=== PATIENT | female | born 1960 | race Caucasian/White ===

== ENCOUNTER → 2025-03-14 13:28 | Outpatient (REF) | payer OTHER, SELFPAY | LOC: RCS 13:28 | PROVIDERS: ATTENDING PHYSICIAN Internal Medicine Cardiovascular Disease; FAMILY PHYSICIAN Family Medicine | DX: I27.20 Pulmonary hypertension, unspecified (principal) | CPT/HCPCS: 93017; 93350 ==

== ENCOUNTER 2025-03-21 06:47 | Day surgery (SDC) | payer OTHER, SELFPAY | END 2025-03-21 09:45 | disposition home or self-care (01) | LOC: CATH 06:47 | PROVIDERS: ATTENDING PHYSICIAN Internal Medicine Cardiovascular Disease; FAMILY PHYSICIAN Family Medicine; OTHER PHYSICIAN Internal Medicine Cardiovascular Disease | DX: I08.1 Rheumatic disorders of both mitral and tricuspid valves (principal); I08.8 Other rheumatic multiple valve diseases; I70.0 Atherosclerosis of aorta; I27.20 Pulmonary hypertension, unspecified; E03.9 Hypothyroidism, unspecified; R73.02 Impaired glucose tolerance (oral); Z79.890 Hormone replacement therapy; Z79.01 Long term (current) use of anticoagulants; Z79.899 Other long term (current) drug therapy | CPT/HCPCS: 93312; 93320; 93325 ==

== ENCOUNTER 2025-04-07 08:19 | Day surgery (SDC) | payer OTHER, SELFPAY ==
[2025-04-07] VITALS (9 sets, daily range): BP systolic 113–144; BP diastolic 60–78; BMI 21.1
[2025-04-07] MEDS: LOW STRENGTH ASPIRIN 324 MG PO (09:33)
[2025-04-07 09:36] LABS: Hematocrit 44.2 % (37.0-47.0); Mean Corp Hgb Conc. 31.7 g/dL (33.0-37.0); Mean Corpuscular Hgb 27.1 pg (27.0-31.0); Mean Corpuscular Volume 85.7 fL (81.0-99.0); Platelet Count 109 10^3/uL (130-400); Red Blood Cell Count 5.16 10^6/uL (4.20-5.40); Red Cell Dist. Width 14.8 % (11.5-14.5); White Blood Cell Count 6.7 10^3/uL (4.8-10.8)
[2025-04-07 09:56] LABS: Blood Urea Nitrogen 15 mg/dl (7-17); Calcium 9.7 mg/dl (8.4-10.2); Carbon Dioxide 27 mmol/L (22-30); Chloride 110 mmol/L (98-107); Estimated Creatinine Clearance 62 ml/min; Glucose 122 mg/dl (70-99); Potassium 4.1 mmol/L (3.5-5.1); Sodium 146 mmol/L (135-145); eGFR > 60.00
--- NOTE | 2025-04-07 10:46 | ITS.CL.CATH ---
Pharmaceutical Assistant - Catheterization
Cardiac Catheterization
Procedure Report:
LEFT AND RIGHT HEART CATHETERIZATION
Date of Procedure: April 07, 2025
Referring: Harika Lozada MD, [facility], [facility]
PROCEDURES:
1. Left heart catheterization, coronary angiogram.
2. Moderate sedation.
3. Right heart catheterization
INDICATION: Severe primary mitral regurgitation, being assessed for mitral valve intervention
ACCESS: Right radial artery, 6Fr. sheath, under US guidance.
HEMODYNAMICS : (mmHg)
RA (m) : 14
RV (s/d,m) : 39/10, 50
PA (s/d, m) : 40/20, 30
PCWP (m) : 26 with V waves to 33
PA saturation: 68.5% on room air
AO saturation: 94.2% on room air
RA saturation: 71.0% on room air
Cardiac Output : 3.07 L/min by Abbie calculation
Cardiac Index : 2.09 L/min/m-2 by Abbie calculation
Systemic vascular resistance: 2133 dsc^(-5)
Pulmonary vascular resistance: 1.63 rodriguez unit
AO (s/d) : 132/73
LVEDP : 22
No significant gradient across the aortic valve to suggest aortic stenosis.
CORONARY FINDINGS
Dominance: Right
Left Main Trunk (LMT): Large caliber vessel that gives rise to the LAD and LCx branches and is free of angiographic disease.
Left Anterior Descending Artery (LAD): Large caliber vessel that gives off 2 major diagonal branches as it courses along the anterior inter-ventricular groove towards the apex. The LAD and its branches are free of angiographic disease.
Left Circumflex Artery (LCx): Medium caliber vessel that gives off 2 major obtuse marginal (OM) branches as it courses along the atrio-ventricular (AV) groove. The LCx and its branches are free of angiographic disease.
Right Coronary Artery (RCA): Large caliber dominant vessel that gives rise to the posterior descending artery (RPDA) and postero-lateral ventricular (RPLV) branches distally. The RCA and its branches are free of angiographic disease.
SEDATION: 27 minutes of procedural sedation was utilized. IV Midazolam and IV Fentanyl were administered. An independent medical asst was present to assist with and help manage the patient's level of consciousness and physiologic status.
RADIATION SUMMARY: Fluoro Time (min): 2.5, Dose (mGy): 90.17, DAP (Gy.cm2) : 6.06
Closure Device: There were no immediate intra-procedural complications. The sheath was pulled in the labor representative and a vascular-band applied to the right wrist for radial artery hemostasis using the patent hemostasis technique.
CONCLUSIONS
1. No obstructive coronary artery disease.
2. Elevated right and left-sided filling pressures
RECOMMENDATIONS
1. Wean radial band per protocol. Monitor right hand perfusion and for bleeding from the radial site following removal of the vascular-band following trans-radial access.
2. Continue aggressive medical therapy and risk factor modification for secondary CAD prevention.
3. Hydrate with normal saline to mitigate the risk of contrast-induced acute kidney injury.
4. Follow-up with Dr. Benjamín Mccarty to have a heart team discussion in regards to best options for mitral valve intervention for underlying severe primary mitral regurgitation
Harika Lozada MD, [facility], [facility]
Copy to: Vanessa Ernst
[2025-04-07] MEDS: LASIX 20 MG IV (12:49)
== END 2025-04-07 13:35 | disposition home or self-care (01) ==
LOC: CATH 08:19
PROVIDERS: ATTENDING PHYSICIAN Internal Medicine Interventional Cardiology; FAMILY PHYSICIAN Family Medicine; OTHER PHYSICIAN Internal Medicine Cardiovascular Disease
DX: I34.0 Nonrheumatic mitral (valve) insufficiency (principal); I48.0 Paroxysmal atrial fibrillation; I27.20 Pulmonary hypertension, unspecified; E03.9 Hypothyroidism, unspecified; I50.30 Unspecified diastolic (congestive) heart failure; R73.03 Prediabetes; Z79.01 Long term (current) use of anticoagulants
CPT/HCPCS: 99152; 99153; C1894; 80048; 85027; 93460; Q9967

== ENCOUNTER → 2025-09-13 08:34 | Outpatient (REF) | payer OTHER, SELFPAY | LOC: RAD 08:34 | PROVIDERS: ATTENDING PHYSICIAN Thoracic Surgery (Cardiothoracic Vascular Surgery); FAMILY PHYSICIAN Family Medicine | DX: I34.0 Nonrheumatic mitral (valve) insufficiency (principal); Z01.810 Encounter for preprocedural cardiovascular examination | CPT/HCPCS: 71275; 74174; Q9967 ==

== ENCOUNTER 2025-10-06 04:59 | Inpatient (IN) | payer OTHER, SELFPAY ==
[2025-09-20 08:21] VITALS: BMI 19.0
[2025-09-20 09:17] LABS: Urine Character Clear (Clear)
[2025-09-20 09:23] LABS: Hematocrit 45.1 % (37.0-47.0); Hemoglobin 14.2 g/dL (12.0-16.0); Mean Corp Hgb Conc. 31.5 g/dL (33.0-37.0); Mean Corpuscular Volume 85.3 fL (81.0-99.0); Nucleated Red Blood Cells % 0 %; Platelet Count 120 10^3/uL (130-400); Red Cell Dist. Width 14.2 % (11.5-14.5)
[2025-09-20 09:28] LABS: INR 2.96; PT 31.2 Sec (11.4-14.6)
[2025-09-20 09:46] LABS: Glycohemoglobin (HgbA1c) 5.8 % (4.0-5.9)
--- NOTE | 2025-09-20 09:54 | CM ---
Chart reviewed. Met with the patient and her brother who is POA in [facility]. Reviewed preoperative and postoperative instructions and restrictions, along with showering guidelines. Gave patient 2 soaps. Patient is agreeable to a home visit by CT
Transitional RN. 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 Plan is for the patient to return home with her sister. CM to follow
[2025-09-20 10:23] LABS: ALT (SGPT) 17 U/L (0-35); AST (SGOT) 28 U/L (14-36); Albumin 4.6 g/dl (3.5-5.0); Alkaline Phosphatase 75 U/L (38-126); Blood Urea Nitrogen 21 mg/dl (7-17); Calcium 10.3 mg/dl (8.4-10.2); Carbon Dioxide 31 mmol/L (22-30); Chloride 100 mmol/L (98-107); Estimated Creatinine Clearance 53 ml/min; Glucose 118 mg/dl (70-99); Potassium 4.1 mmol/L (3.5-5.1); Sodium 140 mmol/L (135-145); Total Protein 8.1 g/dl (6.3-8.2); eGFR > 60.00
[2025-10-06] VITALS (16 sets, daily range): BP systolic 70–132; BP diastolic 42–76; BMI 18.4
[2025-10-06 05:44] LABS: INR 1.22; PT 15.1 Sec (11.4-14.6)
[2025-10-06] MEDS: BACTROBAN 2% OINTMENT 1 APPLIC NASAL ×2 (05:47→21:08)
[2025-10-06] MEDS: MAGNESIUM OXIDE 400 MG PO (05:47)
[2025-10-06] MEDS: LOPRESSOR 25 MG PO (05:47)
[2025-10-06] MEDS: PROTONIX 40 MG PO (05:47)
--- NOTE | 2025-10-06 06:08 | W.CVOR.SURPR ---
CVOR Surgeon Immed Pre Op
-
I have examined this patient prior to performance of the scheduled procedure.
The patient's condition is unchanged from the time of the dictated/written History and
Physical and the patient is able to undergo the scheduled procedure.
MV repair + MAZE + LAAE
--- NOTE | 2025-10-06 06:41 | PTCARENOTE ---
Pt arrived to 2260 w/family and manager security. Pt AOx4, ambulated w/out difficulty, no complaints of pain or discomfort. Pt confirmed NPO status, no food or water after 0000. Pt confirmed taking 4% chlorhexidine shower last night and this am. Pt
clipped and prep per protocol wiped w/CHG. Admission questions and medication rec completed. Preop medications given. Pt resting in bed, family at bedside, Dr. Mccarty arrived to speak w/pt and family. sales representative consultant to the CVOR.
[2025-10-06 07:34] LABS: ACT+ - POC 126 Seconds (82-134)
[2025-10-06 08:13] LABS: Urine Character Clear (Clear)
[2025-10-06 08:37] LABS: ACT+ - POC 750 Seconds (82-134)
[2025-10-06 08:46] LABS: B.E. - POC 0.3 mmol/L; Glucose - POC 120 mg/dl (70-99); HCO3 - POC 24 mmol/L (21-28); Hematocrit - POC 36 % PCV (37-47); Hemodilution- POC No; Hemoglobin Calculated - POC 12.1; Ionized Calcium - POC 1.04 mmol/L (1.15-1.33); Lactate - POC 0.71 mmol/L (0.36-0.75); O2 Saturation %Calculated-POC 100.0 % (94-98); PCO2 - POC 36 mmHg (35-48); PO2 - POC 388 mmHg (83-108); POC Comment PRE; Potassium - POC 2.9 mmol/L (3.5-5.1); Sodium - POC 146 mmol/L (136-145); Specimen Type - POC Arterial; pH - POC 7.44 (7.35-7.45)
[2025-10-06 09:05] LABS: ACT+ - POC 921 Seconds (82-134)
[2025-10-06 09:17] LABS: B.E. - POC 5.7 mmol/L; Glucose - POC 136 mg/dl (70-99); HCO3 - POC 27 mmol/L (21-28); Hematocrit - POC 28 % PCV (37-47); Hemodilution- POC Yes; Hemoglobin Calculated - POC 9.4; Ionized Calcium - POC 0.89 mmol/L (1.15-1.33); Lactate - POC 1.43 mmol/L (0.36-0.75); O2 Saturation %Calculated-POC 100.0 % (94-98); PCO2 - POC 29 mmHg (35-48); PO2 - POC 509 mmHg (83-108); POC Comment CPB; Potassium - POC 4.9 mmol/L (3.5-5.1); Sodium - POC 143 mmol/L (136-145); Specimen Type - POC Arterial; pH - POC 7.59 (7.35-7.45)
[2025-10-06 09:49] LABS: ACT+ - POC 679 Seconds (82-134)
[2025-10-06 09:58] LABS: B.E. - POC 4.7 mmol/L; Glucose - POC 166 mg/dl (70-99); HCO3 - POC 29 mmol/L (21-28); Hematocrit - POC 33 % PCV (37-47); Hemodilution- POC Yes; Hemoglobin Calculated - POC 11.2; Ionized Calcium - POC 0.97 mmol/L (1.15-1.33); Lactate - POC 1.31 mmol/L (0.36-0.75); O2 Saturation %Calculated-POC 99.9 % (94-98); PCO2 - POC 39 mmHg (35-48); PO2 - POC 267 mmHg (83-108); POC Comment CPB; Potassium - POC 4.7 mmol/L (3.5-5.1); Sodium - POC 146 mmol/L (136-145); Specimen Type - POC Arterial; pH - POC 7.48 (7.35-7.45)
[2025-10-06 10:29] LABS: ACT+ - POC 748 Seconds (82-134)
[2025-10-06 10:40] LABS: B.E. - POC 3.7 mmol/L; Glucose - POC 129 mg/dl (70-99); HCO3 - POC 26 mmol/L (21-28); Hematocrit - POC 30 % PCV (37-47); Hemodilution- POC Yes; Hemoglobin Calculated - POC 10.3; Ionized Calcium - POC 0.98 mmol/L (1.15-1.33); Lactate - POC 2.34 mmol/L (0.36-0.75); O2 Saturation %Calculated-POC 99.9 % (94-98); PCO2 - POC 28 mmHg (35-48); PO2 - POC 256 mmHg (83-108); POC Comment CPB; Potassium - POC 3.6 mmol/L (3.5-5.1); Sodium - POC 148 mmol/L (136-145); Specimen Type - POC Arterial; pH - POC 7.56 (7.35-7.45)
[2025-10-06 11:07] LABS: ACT+ - POC > 1003 Seconds (82-134)
[2025-10-06 11:10] LABS: B.E. - POC 0.3 mmol/L; Glucose - POC 121 mg/dl (70-99); HCO3 - POC 23 mmol/L (21-28); Hematocrit - POC 30 % PCV (37-47); Hemodilution- POC Yes; Hemoglobin Calculated - POC 10.2; Ionized Calcium - POC 1.09 mmol/L (1.15-1.33); Lactate - POC 4.26 mmol/L (0.36-0.75); O2 Saturation %Calculated-POC 99.9 % (94-98); PCO2 - POC 28 mmHg (35-48); PO2 - POC 295 mmHg (83-108); POC Comment CPB; Potassium - POC 3.8 mmol/L (3.5-5.1); Sodium - POC 148 mmol/L (136-145); Specimen Type - POC Arterial; pH - POC 7.52 (7.35-7.45)
[2025-10-06 11:16] LABS: ACT+ - POC 164 Seconds (82-134)
--- NOTE | 2025-10-06 11:26 | CM ---
Chart reviewed. Patient is in the OR today. 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 Patient's brother is patient's POA. Plan is for the patient to
return home with her sister. CM to follow
[2025-10-06 11:32] LABS: ACT+ - POC 148 Seconds (82-134)
[2025-10-06 11:45] LABS: B.E. - POC -2.9 mmol/L; Glucose - POC 98 mg/dl (70-99); HCO3 - POC 22 mmol/L (21-28); Hematocrit - POC 29 % PCV (37-47); Hemodilution- POC Yes; Hemoglobin Calculated - POC 9.8; Ionized Calcium - POC 1.15 mmol/L (1.15-1.33); Lactate - POC 4.43 mmol/L (0.36-0.75); O2 Saturation %Calculated-POC 99.9 % (94-98); PCO2 - POC 36 mmHg (35-48); PO2 - POC 291 mmHg (83-108); POC Comment POST; Potassium - POC 2.9 mmol/L (3.5-5.1); Sodium - POC 150 mmol/L (136-145); Specimen Type - POC Arterial; pH - POC 7.39 (7.35-7.45)
[2025-10-06 12:04] LABS: Glucose - Point of Care 89 mg/dl (70-99)
--- NOTE | 2025-10-06 12:11 | W.PN.CT.SURG ---
CT Surgery Operative Note
-
CARDIAC SURGERY OPERATIVE REPORT
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
Postoperative Diagnosis: Same
Procedure(s) Performed:
1. Right mini thoracotomy with right femoral artery and vein cannulation under CEDRIC guidance
2. Radical mitral valve repair (free edge remodeling of P1 and P2 as well as P2 and P3, imbrication of P2 and P3, placement of 3 Kill Buck-Norberto sutures with 2 to the posterior leaflet and 1 to the anterior leaflet, 36 mm band annuloplasty)
3. Placement temporary ventricular pacing wires
4. Trans esophageal echocardiography
5. Cryo left atrial maze, left atrial appendage exclusion
Date of Surgery: 10/06/2025
Comorbidities:
1. Chronic atrial fibrillation with severely dilated left atrium
2. Myxomatous mitral valve degeneration with severe insufficiency, type II pathology as well as significant annular dilatation [atrial functional]
3. Hypothyroidism
4. Restless leg syndrome
Attending Surgeon: Benjamín Mccarty MD, MS
Assistants: Hilary Montalvo MD (did portions of the posterior leaflet repair as wll as annular sutures), YANETH Enamorado (present and necessary for retraction, suctioning, exposure, suture management, wound closure, etc. under my direction)
Anesthesiology: Schuyler Crockett MD and Tonja Reyes CRNA
Scrub and Circulating RNs: Cara Santizo RN, Orlando Garcia RN
Bessemer Regulator: Jacques Frankel CCP
Anesthesia: GETA
EBL: per perfusion records
Products: none, cell saver
CPB Time: 123 minutes
Aortic Cross Clamp Time: 94 minutes
Indication(s) for Procedures: This is a 65-year-old female with degenerative mitral valve disease and severe mitral valve sufficiency. She has been developing more symptoms lately and was referred for consideration of mitral valve repair. She
stated that she has longstanding atrial fibrillation for as long as she remembers. Given her dilated left atrium, the odds of her remaining in sinus were lower however she was offered mitral valve repair as well as left atrial maze and left atrial
appendage exclusion.
Mitral Valve Description: Combination of type II pathology as well as some annular dilatation. Her posterior leaflet was prolapse that P2 and both anterior and posterior leaflets were thickened. There was significant dilation of her mitral valve
annulus in both the AP and trigone trigonal dimensions. This fit her atrial functional pathology. Large cleft between P1 and P2 as well as P2 and P3 and a short anterior leaflet measuring only 2.8 cm.
Implants:
1. 36 mm Enriquez physio flex annuloplasty band, SN [id number]
2. 35mm left atrial appendage clip, serial #[id number]
3. CV 4 Kill Buck-Norberto x 3
4. Multiple 5-0 Prolene's
Specimen:
1. None
Ablation Lines:
1. CS
2. Mitral Annular at P2/3
3. Roof and Floor going across DIEGO os
Findings: Her left ventricular ejection fraction preoperatively was preserved at approximately 60% but did appear to be somewhat low normal-joel on her intraoperative CEDRIC. She had no significant regional wall motion abnormalities. Her left atrium
and right atrium were significantly dilated. They measured over 6 cm. Following surgery EF remained the same at 55 to 60% with no new regional wall motion abnormalities. Coming off cardiopulmonary bypass the first time after starting protamine
there was a period in which her RV appeared dysfunctional and her blood pressure did sag and so because of this we did reintroduce cardiopulmonary bypass temporarily. This is more likely air entry into the right coronary artery as opposed to a
protein reaction. Her mitral valve was repaired using multiple techniques. The free edge of P1 and P2 as well as P2 and P3 were imbricated and remodeled. I then placed 3 sets of CV 4 Kill Buck-Norberto cords to the posterior medial papillary muscle head
and anchored them with 2 to the posterior leaflet at the P1 P2 as well as A2 segments of the antilipid the mitral valve. She had a short anterior leaflet measuring only 2.8 cm but a significantly dilated left atrium and annulus. In order to
mitigate the risk of causing systolic anterior motion, I did not want to severely undersized her mitral valve annulus and so a 36 band was sized which left a relatively central coaptation line on test inflation but good competency. Hence, a single
CV 4 Kill Buck-Norberto was placed at the anterior leaflet of the mitral valve to prevent a systolic anterior motion. At the end of the surgery, she had a trace to mild residual insufficiency with a jet at the cleft between P1 and P2 but overall was much
improved compared to her torrential insufficiency presentation. She did not require any blood products and did receive vaccine whole blood as well as Cell Saver and was placed on inotropic support given the severity of her insufficiency
preoperatively. She was presently in sinus rhythm after surgery but presented with rate controlled atrial fibrillation.
Description of Procedure: The patient was brought to the operating room and placed supine in the table with their right side bumped up and right arm down. Arterial and central access was performed by anesthesiology. The patient was prepped from chin
to toes in the typical sterile fashion. Trans esophageal evaluation of cardiac function and all valvular structures was conducted. Before commencing, a time out was performed by all members of the team. All were in agreement with the procedure and
laterality and I proceeded. A small right groin incision was made to expose the common femoral artery and vein. A 5-6 cm right lateral muscle sparing thoracotomy sweeping the pec major muscle cephalad at the serratus anterior was performed over the
4th intercostal space verified by visualization of the hilum. A total of 50,000 units of heparin was given. The common femoral artery and vein were cannulated under transesophageal guidance using open Seldinger technique. The arterial line was
verified to have an appropriate bounce and pressure correlating with testing. Once the ACT was above 400, retrograde autologous priming was done and we commenced cardiopulmonary bypass. Target core temperature was 34�C.
Carbon dioxide was used to flood the field. The course of the phrenic nerve was identified to prevent injury. The pericardium was opened and two stay sutures were placed to facilitate a ``pericardial table.�� The oblique sinus was developed followed
by the inter atrial groove. An antegrade root vent was inserted and secured with a pursestring suture. The pump flow and mean arterial pressure were lowered and an aortic cross clamp was applied to the ascending aorta. A total of 1.2L initial dose
of Antegrade cardioplegia was delivered. We had rapid electro myocardial quiescence at 425cc of cardioplegia. The ventricle was monitored for distension by echocardiogram during this time. Once cardioplegia was complete, the aorta was lifted
anteriorly and the left atrial appendage was accessed via the transverse sinus. This was sized to 35 mm clip with the appendage was relatively apparent. Of note, her left atrium was significantly dilated and so the base of the appendage was
difficult to identify. He was clip with a 35mm device. The left atrium was incised and enlarged. A left atrial lift retractor was placed. The mitral valve was inspected. A cryo maze was then performed with the above listed lesion lines. The
mitral valve was repaired as described above. The left atriotomy was closed with 3-0 prolene in a running fashion leaving a ventricular vent in place to de-air. After filling the heart, the vent was removed and the prolene was secured with a
corknot. Unipolar ventricular pacing wire was placed on the base of the right ventricle. The patient was placed into Trendelenburg position and pump flows were lowered. The clamp was slowly removed with the root vent turned on. De-airing maneuvers
were performed. We started to rewarm with a target of 36.5�C.
As the heart recovered, the mitral valve and ventricular function were assessed under transesophageal echocardiogram. The root vent was removed. Once weaning parameters were satisfactory, cardiopulmonary bypass flow was lowered until we were off
cardiopulmonary bypass the mitral valve was inspected again. All surgical sites were inspected for hemostasis and appeared appropriate. There was some bleeding that was emanating anteriorly along the chest wall overlying the ascending aorta. With
some retraction was able to identify if this was from some thymus vein bleeding and so a single 3-0 Prolene pledgeted suture was placed here across the fat pad and core knot at into place. This had good hemostatic effect. We briefly resumed
cardiopulmonary bypass to remove the root vent and the pericardium was approximated with 2-0 ethibond sutures secured with corknots. The lines were clamped and the arterial was relocated to the venous cannula to give back volume. A test dose of
protamine was delivered and patient was monitored for any adverse reactions followed by complete protamine dosing. As mentioned above, there was a period after receiving approximately 50 mg of protamine which became hypotensive with significant RV
dysfunction. We did reinstitute cardiopulmonary bypass via the same cannulas temporarily and she was given some epinephrine inotropic support. This resolved and RV function returned normal. This was likely area of treatment to the right coronary
artery as opposed to an actual protamine reaction. We then weaned off cardiopulmonary bypass again in the usual fashion and she did not have any further reactions to protamine with the second dose. The femoral vessels were decannulated
maintaining wire access and repaired as indicated. One 19F Suhas drain remained in the pleural space and threaded into the pericardium. There was an excellent palpable distal pulse to the ELEVATOR SUPERVISOR cannulation site. Local analgesia was injected to the
thoracotomy. The incision was closed in layers in a running fashion.
All instrument, sponge, and needle counts were confirmed to be correct x 2 at the end of the operation. The patient was transferred to the cardiac intensive care unit in critical but stable condition.
I, Dr. Benjamín Mccarty, was present, scrubbed for, and performed all critical elements of this procedure.
Benjamín Mccarty MD, MS
Cardiothoracic Surgeon
[facility]
This dictation was created using the [email or web address] dictation system. Please excuse any grammatical, typographical, or 'sound alike' errors
--- NOTE | 2025-10-06 12:14 | PTCARENOTE ---
Received pt from CVOR, Intubated and sedated on the vent, settings per anesthesia. SIMV 14,400/5/5 40% pulse ox 100%. A fib on monitor, epicardial wire intact, box on standby. Rt IJ cordis with swan floated to 42 cm. Lt radial A line
transducing. Lines leveled, recalibrated and flushed. Infusions running on handoff as follows: Levophed, dobutamine, precedex. See flow sheet for totals and titrations. Chest tube x 1 to - 20 cm suction. No air leak or crepitus noted .
Abdomen soft and non tender, wick draining clear yellow urine. DP pulses palpable. Skin pink and dry.
[2025-10-06 12:16] LABS: B.E. 0.4 mmol/L; HCO3 24.6 mmol/L (21-28); O2 Saturation % 100.0 % (94-98); PCO2 37 mmHg (32-35); PO2 188 mmHg (83-108); Potassium 3.2 mMOL/L (3.5-5.1); Sodium 145 mMOL/L (136-145)
[2025-10-06 12:18] LABS: O2 Therapy VENT
[2025-10-06 12:20] LABS: INR 1.96; PT 22.5 Sec (11.4-14.6)
[2025-10-06 12:21] LABS: APTT 35.7 Sec (23.4-35.0); Hematocrit 33.3 % (37.0-47.0); Hemoglobin 10.9 g/dL (12.0-16.0)
[2025-10-06 12:32] LABS: Blood Urea Nitrogen 12 mg/dl (7-17); Estimated Creatinine Clearance 69 ml/min; Glucose 89 mg/dl (70-99); Magnesium 3.4 mg/dl (1.6-2.3)
[2025-10-06] MEDS: ANCEF 10 IV ×2 (12:38)
[2025-10-06] MEDS: SYNTHROID PO (12:39)
[2025-10-06] MEDS: NEURONTIN PO ×2 (12:39→14:50)
[2025-10-06] MEDS: NSS 500 IV (12:39)
[2025-10-06] MEDS: KCL 50 IV ×2 (12:41→13:09)
[2025-10-06] MEDS: CALCIUM GLUCONATE 100 IV (12:41)
--- NOTE | 2025-10-06 12:41 | CON.INTV ---
Consultation
Consultation Request
Date/Time Consultation Requested: 10/06/25
Date/Time Consultation Performed: 10/06/25
Performing Provider: Ronaldo
Reason for Consultation: CVICU
Medical History
-
History of Present Illness:
65-year-old female with past history of severe mitral insufficiency, A-fib, pulmonary hypertension presenting for elective cardiac surgery. She has known history of degenerative mitral valve disease with severe insufficiency, did have complaints of
chronic fatigue. Underwent mitral valve repair on 10/06/2025 and postoperatively transferred to CVICU for further management.
Allergies / Home Medications
Allergies
Allergy/AdvReac Type Severity Reaction Status Date / Time
azithromycin Allergy Mild Unknown Verified 09/19/25 08:31
Home Medications
�Medication �Instructions �Recorded �Confirmed �Last Taken �Type
cholecalciferol (vitamin D3) 50 50 mcg PO DAILY Supplement 03/21/25 10/06/25 09/28/25 08:00 History
mcg (2,000 unit) capsule (Vitamin 50
D3)
levothyroxine 50 mcg tablet 50 mcg PO DAILY Thyroid 03/21/25 10/06/25 10/05/25 08:00 History
50 mcq
metoprolol succinate 50 mg 50 mg PO DAILY Blood Pressure 03/21/25 10/06/25 10/05/25 08:00 History
tablet,extended release 24 hr 50 mg
rivaroxaban 20 mg tablet (Xarelto) 20 mg PO QPM Blood Clot 03/21/25 10/06/25 10/02/25 19:00 History
Prevention/Tx 20 mg
multivitamin 1 tab PO DAILY Supplement 09/19/25 10/06/25 09/28/25 08:00 History
1 Tab
furosemide 20 mg tablet (Lasix) 20 mg PO DAILY Fluid 10/06/25 10/06/25 10/04/25 08:00 History
Retention/Swelling 20 mg
lisinopril 2.5 mg tablet 2.5 mg PO DAILY Blood Pressure 10/06/25 10/06/25 10/03/25 08:00 History
2.5 mg
Review of Systems
Vitals / Labs / Diagnostic Testing
Vital Signs
Temp Pulse Resp BP Pulse Ox
96.1 F L 51 14 131/76 100
10/06/25 12:08 10/06/25 12:20 10/06/25 12:20 10/06/25 05:17 10/06/25 12:22
Lab Data
10/06/25 12:01
Laboratory Results
10/06/25 10/06/25
05:16 12:01
PT 15.1 H 22.5 H
INR 1.22 1.96
APTT 35.7 H
pH 7.43
pCO2 37 H
pO2 188 H
HCO3 24.6
O2 Delivery Level Vent
Diagnostic Testing:
Assessment
-
65-year-old female with past history of severe mitral insufficiency, A-fib, pulmonary hypertension presenting for elective cardiac surgery. She has known history of degenerative mitral valve disease with severe insufficiency, did have complaints of
chronic fatigue. Underwent mitral valve repair on 10/06/2025 and postoperatively transferred to CVICU for further management.
Severe IN s/p Right mini thoracotomy/Radical mitral valve repair/Cryo left atrial maze, left atrial appendage exclusion 10/06/25
Chronic fatigue
Perioperative mechanical ventilation
Postoperative anemia
Acute on chronic thrombocytopenia
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
Permanent a-fib on Xarelto
Pulmonary Hypertension
RLS
Hypothyroidism
Intellectual disability, brother is power of assistant city attorney
Plan
S/p MVR/maze POD #0
Titrate off pressors per protocol
ECHO reviewed with normal function
PA catheter readings reviewed
Management of chest tubes per primary service
Intubated/sedated, initiate SAT when able
Pain control
RASS goal of 0 to -1
Intubated for procedure, SBT trial when patient able to spontaneously breath
Current vent settings: SIMV 400/14/40/5+
ABG(s) reviewed/adequate
CXR with no obvious opacities/infiltrates, low lung volumes, ETT in good position, lines/tubes in place
Extubate per protocol
Maintain supplement oxygen as needed
No prior history of pulmonary disease
No prior PFTs for review
Can add nebulizers if needed
Aspiration precautions
Encouraged incentive spirometry, OOB/ambulation/early mobility
Advance diet as tolerated following extubation
GI prophylaxis if indicated for mechanical ventilation >48 hours
Monitor critical I/O's
Kimbrough/chest tube output
Hb/platelets postoperatively stable
Trend CBC for now
Can transfuse if indicated for Hb <7, plt <50 in surgical patients
DVT prophylaxis including SCDs
Insulin protocol initiated and ongoing
Transition to SQ/off as indicated per team
We will follow
Diagnostic Data
Chest X-Ray: 10/06/25- Endotracheal tube with the tip 3.5 cm above the corinne. Right internal jugular [place] catheter with the tip in the main pulmonary artery. Chest tubes in place. No focal consolidation, pleural effusion, or pneumothorax. The
cardia mediastinal silhouette is normal. Mitral valve prosthesis and a left atrial appendage clip. Mild thoracic dextroscoliosis.
CT Scan: CHEST 09/13/25- 1. Mild aortic atherosclerotic changes without aneurysmal dilation or flow limiting stenosis.
2. Moderate cardiomegaly. Marked left atrial enlargement.
3. Anatomic variation with replaced common hepatic artery as above.
4. Bilateral renal cortical thinning and scarring. Nonobstructive left nephrolithiasis. Small probable renal cysts as above. Left renal exophytic 4.4 cm benign simple cyst.
5. Small focus of gas in the antidependent position in the urinary bladder, question recent catheterization. In the absence of recent procedure or catheterization, infection would be a consideration.
Echo: CEDRIC 10/06/25- Overall LVEF is approximately 55% with no RWMA. Mild concentric left ventricular hypertrophy. Massively dilated left atrium. Severely dilated right atrium. Dilated coronary sinus (diameter = 1.3 cm). IAS is quite elongated due
to the biatrial dilation but no PFO. Mild to moderate tricuspid regurgitation. Severe mitral regurgitation. MV leaflets appear myxomatous. MR jet is anteriorly directed emanating from P2 and coursing to A1. MR etiology is from P2 prolapse,
annular dilation, and redundant leaflets. Mild sessile atheroma seen in the descending aorta and distal arch.
[facility] 04/07[facility]25- 1. No obstructive coronary artery disease. 2. Elevated right and left-sided filling pressures
PFT's:
Reports and relevant images were personally reviewed.
Critical Care time 51 mins -- The patient is admitted for acute critical illness for the treatment of vital organ failure and/or prevention of further life-threatening conditions. Total care includes time spent in review of history, physical exam,
medications, hemodynamic/ventilator parameters, laboratory data, imaging and discussion with house staff, pharmacy, respiratory therapy, brazer crawler torch, and nursing.
--- NOTE | 2025-10-06 12:49 | PTCARENOTE ---
BP labile, Cardiac index 1.16, CT TIME CLOCK REPAIRER notified. Pt hypotensive in 60's, Drips titrated, 500mg IVP calcium administered. Slow response. but VSS
[2025-10-06 12:52] LABS: Platelet Count 62 10^3/uL (130-400)
[2025-10-06] MEDS: CALCIUM CHLORIDE 10% SYRINGE 500 MG IV (12:56)
[2025-10-06 13:01] LABS: Glucose - Point of Care 96 mg/dl (70-99)
[2025-10-06] MEDS: TYLENOL PO ×2 (13:11→22:25)
[2025-10-06 13:59] LABS: Glucose - Point of Care 110 mg/dl (70-99)
--- NOTE | 2025-10-06 14:12 | W.PN.CARDCBS ---
Addendum entered and electronically signed by Danial Real MD 10/06/25 18:20:
Patient seen roughly 2 hours following extubation. Somewhat sedated, not offering complaints, conversant
On low-dose norepinephrine and dobutamine as well as insulin
Intermittently A-fib, has been bradycardic, intermittently paced at 70,
platelet count 69, receiving platelets
Lungs are clear, no rub, right thoracotomy sites intact, no edema
Impression:
Doing well immediately postop.
Diagnoses as below. Reviewed in detail and agree unless otherwise specified
Plan:
Continue supportive care
Appreciate efforts of CT surgery
Original Note:
Today's Communication / Plan
-
Continue postop care
Currently AV paced, with history of chronic A-fib
Replete platelets
Impression / Plan
-
Primary Timber Repairer: Dr. Lozada
Assessment:
Severe mitral valve insufficiency with significant annular dilatation status post radical MVR via right minithoracotomy, cryo LA MAZE, DIEGO clip 10/06/2025
Postop thrombocytopenia
Chronic atrial fibrillation
Chronic anticoagulation with Xarelto
Severely dilated LA
Hypertension
Hypothyroidism
Restless leg syndrome
CEDRIC 03/21/2025: EF 60%, severe MR due to prolapse of posterior leaflet, predominantly P2 segment, mild to moderate TR, PAP 28 mmHg
Plan:
-status post radical MVR via right minithoracotomy, cryo LA MAZE, DIEGO clip 10/06/2025
-beginning to awaken
-currently requiring dobut@5, levo@3, wean as able. CI 1.89. has good urine output
-currently vpaced @70. has chronic afib. initially post op underlying rhythm afib in 40s, EKG reviewed
-platelets currently low @62, discussed with surgical service, will replete. holding asa
-continue post op care
-resume OAC when ok from surgical standpoint
-d/w nursing
Progress Note - Timber Repairer
Subjective
Date of Service: October 06, 2025
Beginning to wake up, but still sedated/groggy
Objective
Labs:
10/06/25 12:01
Labs
Hgb Cancelled 10/06/25 15:30
Hct Cancelled 10/06/25 15:30
Plt Count Cancelled 10/06/25 15:30
PT 22.5 Sec (11.4-14.6) H 10/06/25 12:01
INR 1.96 10/06/25 12:01
APTT 35.7 Sec (23.4-35.0) H 10/06/25 12:01
Sodium 140 mmol/L (135-145) 09/20/25 08:37
Potassium 4.1 mmol/L (3.5-5.1) 09/20/25 08:37
BUN 12 mg/dl (7-17) 10/06/25 12:01
Creatinine 0.6 mg/dL (0.6-1.0) 10/06/25 12:01
Glucose 89 mg/dl (70-99) 10/06/25 12:01
Vital Signs and I&O:
Vital Signs
Temp Pulse Resp BP Pulse Ox
97.4 F 70 14 104/51 99
10/06/25 13:53 10/06/25 14:00 10/06/25 14:00 10/06/25 14:00 10/06/25 14:00
Vital Signs
Temp Pulse Resp BP Pulse Ox
97.4 F 70 14 104/51 99
10/06/25 13:53 10/06/25 14:00 10/06/25 14:00 10/06/25 14:00 10/06/25 14:00
Intake & Output
10/04/25 10/05/25 10/06/25 10/07/25
07:59 07:59 07:59 07:59
Intake Total 435.2 / 435.2
Output Total 940 / 940
Balance -504.8 / -504.8
Physical Exam
Physical Exam
GEN: No distress, sedated, intubated. On Mehran hugger
HEENT: supple, anicteric, mmm
LUNGS: CTA bilaterally, no wheezes/rales
CV: Irreg, S1/S2, no murmur
ABD: soft, BS+, NT/ND
EXT: No cyanosis, clubbing, edema
NEURO: Sedated
SKIN: Warm, pink, dry. No rash. Chest tubes in place.
--- NOTE | 2025-10-06 14:12 | PTCARENOTE ---
Awakening spontaneously. Follows commands, CPAP trial initiated, however pt remains too sleepy and having apnea periods. will attempt when more awake
--- NOTE | 2025-10-06 14:30 | W.PN.UPDATE ---
Update Note
Progress Note Update
65 year old female was electively admitted on 10/06/25 for mitral repair, MAZE and left atrial appendage clip due to severe mitral regurgitation, chronic AF (on Xarelto @ home), and c/o fatigue
IV fluids: 1400
U.O.:� 1000
Blood:� none (350 cell saver)
Wires:� V-wires
Drips: Levophed @ 1, Dobutamine @ 5, Precedex, Insulin
�
NEURO: sedated, pupils +2mm B/L
RESP: #8OT @23cm> 500/40%//. Lungs clear B/L. R pleural (30cc on arrival) chest tubes to -20cm suction. Sanguineous drainage
CV: RRR +S1, S2, no S3, no�rub, no murmur. Dermabond to median sternotomy. RIJ w/[place] locked @ 46cm. PA 41/20; CVP 16; C.O 2.71/CI 1.9
ABD: round, soft, no BS
EXT: no edema, +2/4 DP pulses B/L, no femoral bruit, right femoral cannulation site w/o hematoma/bruit; XX radial A-line intact
: Kimbrough with clear yellow urine
�
A/P: POD #0 s/p Radical mitral valve repair (free edge remodeling of P1 and P2 as well as P2 and P3, imbrication of P2 and P3, placement of 3 [place]-Norberto sutures with 2 to the posterior leaflet and 1 to the anterior leaflet, 36 mm band annuloplasty),
Cryo left atrial maze, left atrial appendage exclusion
CEDRIC: EF�50%, MV 2/1mmHg, mild mitral and tricuspid regurgitation
- wean and extubate
- continue Dobutamine, wean levophed
- will need instruction regarding antibiotic prophylaxis for dental and invasive procedures \\
- follow up TTE on 10/09
# Acute post-op Thrombocytopenia
- trend CBC as no bleeding
- will assess timing to resume Xarelto
�
# acute surgical blood loss anemia-expected
- trend CBC
�
# permanent atrial fibrillation w/CHADsVASC 2�points (female, HTN): Stroke risk was 2.2% per year in >90,000 patients (the [place] Atrial Fibrillation Cohort Study) and 2.9% risk of stroke/TIA/systemic embolism.
- resume beta-brianna as HR/BP permit, once off Dobutamine
- resume anticoagulation as platelet count improves
�
# PreDM (A1C 5.8)
- insulin infusion x 24h
- no home meds
�
# Hypothyroidism
- resume�levothyroxine 50mcg daily
# HTN
- resume lisinopril as BP permits
[2025-10-06] MEDS: PACERONE PO ×2 (14:50→21:10)
[2025-10-06 15:08] LABS: Glucose - Point of Care 139 mg/dl (70-99)
--- NOTE | 2025-10-06 15:28 | PTCARENOTE ---
PT more awake, thrashing in bed, biting ETT CPAP trial attempted, pt washed with CHG wipes linens and gown changed. apena at times. will obtain ABG per protocol.
[2025-10-06 15:55] LABS: Glucose - Point of Care 173 mg/dl (70-99)
[2025-10-06] MEDS: OFIRMEV 100 IV (15:59)
[2025-10-06 16:01] LABS: B.E. -1.2 mmol/L; HCO3 24.8 mmol/L (21-28); O2 Saturation % 100.0 % (94-98); PCO2 46 mmHg (32-35); PO2 158 mmHg (83-108); Potassium 5.2 mMOL/L (3.5-5.1); Sodium 143 mMOL/L (136-145)
--- NOTE | 2025-10-06 16:10 | RESPNOTE ---
Addendum entered by Fermin Olmstead, RT 10/06/25 16:11:
Correction: extubated at 1605.
Original Note:
Respiratory: patient extubated at 1405 without incident, no stridor no wheeze.
--- NOTE | 2025-10-06 16:16 | PTCARENOTE ---
Extubated to 6 L at 1605. Pt agitated adn upset with tube removal. attempting to cough frequently and forcefully. Pt c/o nausea, zofra administered. Pt encouraged to rest. Dobutamine decreased as per CT surgeon orders. Will monitor.
[2025-10-06] MEDS: ZOFRAN 4 MG IV (16:22)
[2025-10-06 16:26] LABS: Hematocrit 34.3 % (37.0-47.0); Hemoglobin 11.0 g/dL (12.0-16.0); Platelet Count 69 10^3/uL (130-400)
[2025-10-06] MEDS: ROXICODONE 5 MG PO ×2 (16:43→21:08)
[2025-10-06 17:02] LABS: Glucose - Point of Care 181 mg/dl (70-99)
--- NOTE | 2025-10-06 17:57 | PTCARENOTE ---
PT forcefully attempting to cough up mucus. when instructed by RN to avoid doing this pt informed RN she does this at home.
[2025-10-06 18:02] LABS: Glucose - Point of Care 189 mg/dl (70-99)
[2025-10-06] MEDS: ANCEF 5 IV (18:11)
[2025-10-06 19:06] LABS: Glucose - Point of Care 192 mg/dl (70-99)
--- NOTE | 2025-10-06 20:00 | PTCARENOTE ---
assumed care of patient @ 1900. recieved pt laying in bed
Neuro - Aox3. slow speech at times, hx developmental delay
CV - Currently V paced on tele at 7 with epicardial wire. settings 70,10,.8. BP goal systolic 90-110. +PP, -E. PAs 20s/10s, CVP ~8.
Lungs- clear b/l on 4L satting 100 percent. CTx1 to wall suction no air leak, tidaling or crepitus noted. IS encouraged
GI - belly flat, hypoactive. tolerating sips and chips
- wick present draining clear yellow urine.
Skin- R groin inscision closed with glue, CDI CABLE TELEVISION ACCESS COORDINATOR. R axilla and R breast inscisions closed with glue, CDI CABLE TELEVISION ACCESS COORDINATOR.
Lines- R IJ cordis with swan at 50. L forearm a line, R forearm PIV. all patent. central lines zeroed, flushed.
Meds - dobut at 4, levo at 2 , insulin per protocol
pt resting with call lackey within reach .
[2025-10-06 20:09] LABS: Glucose - Point of Care 172 mg/dl (70-99)
[2025-10-06] MEDS: SODIUM BICARBONATE 50 MEQ IV (20:19)
[2025-10-06 21:05] LABS: Glucose - Point of Care 142 mg/dl (70-99)
[2025-10-06] MEDS: SENOKOT PO (21:10)
[2025-10-06] MEDS: NEURONTIN 100 MG PO (21:10)
[2025-10-06 22:02] LABS: Glucose - Point of Care 133 mg/dl (70-99)
[2025-10-06] MEDS: REGLAN 10 MG IV (22:15)
--- NOTE | 2025-10-06 22:25 | PTCARENOTE ---
pt having intermittent dry heaving episodes, now with some vomit ~ 50 mls. reglan ordered and given. pt states this is a chronic issue
[2025-10-06 23:02] LABS: Glucose - Point of Care 120 mg/dl (70-99)
[2025-10-07] VITALS (35 sets, daily range): BP systolic 77–144; BP diastolic 45–73; BMI 19.1
[2025-10-07] MEDS: NSS 250 IV (00:25)
--- NOTE | 2025-10-07 00:30 | PTCARENOTE ---
pacer increased to 80 bpm by CTPA to help C.I, 250 fluid bolus also ordered and given. no other change in patient assessment .
[2025-10-07 01:07] LABS: Glucose - Point of Care 98 mg/dl (70-99)
[2025-10-07 02:58] LABS: Glucose - Point of Care 100 mg/dl (70-99)
[2025-10-07 03:25] LABS: Hematocrit 32.5 % (37.0-47.0); Hemoglobin 10.1 g/dL (12.0-16.0); Mean Corp Hgb Conc. 31.1 g/dL (33.0-37.0); Mean Corpuscular Volume 88.6 fL (81.0-99.0); Platelet Count 58 10^3/uL (130-400); Red Cell Dist. Width 14.8 % (11.5-14.5)
[2025-10-07] MEDS: ANCEF 5 IV ×2 (03:28→09:31)
[2025-10-07 03:30] LABS: INR 1.54; PT 18.6 Sec (11.4-14.6)
[2025-10-07 03:44] LABS: Blood Urea Nitrogen 15 mg/dl (7-17); Calcium 9.1 mg/dl (8.4-10.2); Carbon Dioxide 30 mmol/L (22-30); Chloride 117 mmol/L (98-107); Estimated Creatinine Clearance 52 ml/min; Glucose 117 mg/dl (70-99); Magnesium 2.7 mg/dl (1.6-2.3); Potassium 3.9 mmol/L (3.5-5.1); Sodium 148 mmol/L (135-145); eGFR > 60.00
--- NOTE | 2025-10-07 03:49 | W.PN.CT ---
Today's Communication / Plan
-
Plan:
-No major issues overnight. Hemodynamically and neurologically intact
-Pt was successfully extubated yesterday 10/06/25 @ 1610
-On Dobutamine gtt @ 4 mcg/kg/min, on insulin gtt per protocol; weaned off Levophed gtt overnight
-Last CI 1.99, MVO2 69.2%, U/O since OR 1625 mL
-Monitor chest tube drainage: R pleural into pericardium 200/400. CxR this AM look clear on my assessment, F/U official report
-Acute postop bradycardia necessitating temporary PW pacing @ 70 - 80 bpm immediately postop. currently in rate controlled a-fib 60-70's, PW @ backup VVI of 40/5
-Maintain temporary PW, will eventually cut
-Eventual resumption of anticoagulation, was on Xarelto @ home
-Monitor plts, 62-> 69-> 58; placed ASA on hold this AM
-Held Amiodarone last night d/t HR 40's, paced @ 70 bpm
-Will hold AM dose of BB while on Dobutamine
-Cont. current meds (Dobutamine, Levothyroxine)
-Mag oxide is 2.7, will hold mag oxide
-Will maintain swan and a-line while on Dobutamine gtt
-Will maintain wick catheter for accurate I/O's while on Dobutamine
-Will D/C insulin gtt today per protocol
-Maintain cordis
-Encourage use of IS
-Wean off O2 as tolerated
-OOB into chair/Ambulate
-Will repeat echo on 10/09 to reassess MV repair
Assessment / Plan
-
Assessment:
-S/P Right mini thoracotomy with right femoral artery and vein cannulation under CEDRIC guidance/ Radical mitral valve repair (free edge remodeling of P1 and P2 as well as P2 and P3, imbrication of P2 and P3, placement of 3 [place]-Norberto sutures with 2 to
the posterior leaflet and 1 to the anterior leaflet, 36 mm band annuloplasty)/ Cryo left atrial maze, left atrial appendage exclusion, by Dr. gonsales, 10/06/25, pod#1
-Myxomatous mitral valve degeneration with severe insufficiency, type II pathology as well as significant annular dilatation [atrial functional]
-Chronic atrial fibrillation with severely dilated left atrium
-Mild-moderate TR
-Massively dilated left atrium
-Severely dilated right atrium
-Dilated coronary sinus (1.3 cm)
-LVEF 55% per intraop CEDRIC
-Hypothyroidism
-Restless leg syndrome
-Chronic cough
-Thrombocytopenia
-Acute postop blood loss/Anemia (stable, received cell saver intraop)
-Acute postop thrombocytopenia on chronic thrombocytopenia (stable, no active bleed)
-Acute postop atelectasis
-Acute postop hypovolemia with subsequent hypervolemia
-Acute postop bradycardia
-Acute postop hypernatremia, 148
-Acute postop hypokalemia/hyperkalemia
Discussed patient care with: Cardiology, Nursing, Respiratory Therapy, Pharmacy and Care Team
Subjective
Procedure
S/P Right mini thoracotomy with right femoral artery and vein cannulation under CEDRIC guidance/ Radical mitral valve repair (free edge remodeling of P1 and P2 as well as P2 and P3, imbrication of P2 and P3, placement of 3 [place]-Norberto sutures with 2 to
the posterior leaflet and 1 to the anterior leaflet, 36 mm band annuloplasty)/ Cryo left atrial maze, left atrial appendage exclusion, by Dr. gonsales, 10/06/25
-
Date of Service: October 07, 2025
Pt c/o incisional pain and nausea, otherwise feels well
Objective Data
-
Lab Results
10/07/25 03:07
10/07/25 03:07
PT 18.6 Sec (11.4-14.6) H 10/07/25 03:07
INR 1.54 10/07/25 03:07
APTT 35.7 Sec (23.4-35.0) H 10/06/25 12:01
Vital Signs
Vital Signs
Temp Pulse Resp BP Pulse Ox
97.9 F 80 0 96/62 100
10/07/25 03:00 10/07/25 03:46 10/07/25 03:46 10/07/25 03:00 10/07/25 03:46
CT Intake/Output/Weight
10/06/25 10/06/25 10/07/25
06:59 18:59 06:59
Intake Total 1569.7 / 1898.7 329.0 / 1898.7
Output Total 1415 / 1900 485 / 1900
Balance 154.7 / -1.3 -156.0 / -1.3
SaO2: 100 (2L)
Physical Exam
-
General: Awake, Oriented and AOx3
Cardiovascular: Irregular rate & rhythm (a-fib), No Murmurs, No Rub and No Gallop
Respiratory: Decreased Breath Sounds (at bases, otherwise clear)
Sternum: Stable
Incision: Clean, Dry, Intact and Dressing Intact
Extremities: Other (+trace edema)
Data Reviewed
-
Lab Results: Results Reviewed
Medications: Active Meds Reviewed
Chest X-Ray: Report Reviewed and Image Reviewed
ECG: Report Reviewed and Image Reviewed
[2025-10-07] MEDS: KCL 260 MEQ IV (04:42)
--- NOTE | 2025-10-07 04:52 | PTCARENOTE ---
after a hard coughing / dry heaving fit, pacer wire suddenly inappropriately pacing. CTPA at bedside, pacer turned off and EKG captured. afib rhythm with possible competing junctional rhythm in the 60s-70ss. BP stable. pacer left off for now.
[2025-10-07 06:06] LABS: Glucose - Point of Care 155 mg/dl (70-99)
[2025-10-07] MEDS: SYNTHROID 50 MCG PO (06:59)
[2025-10-07] MEDS: TYLENOL 975 MG PO ×3 (06:59→20:06)
--- NOTE | 2025-10-07 08:00 | PTCARENOTE ---
pt received from previous RN, oriented, in bed. Aflutter w/ PVCs on the monitor, HR 70s. V wire in place. SBP 100s. palpable pulses. PAP 20s/10s, CVP~20. CI 1.79. Dobutamine gtt running as ordered. TECHNOLOGY CONSULTANT aware of hemodynamics. pt on 2LNC, 100% POX.
lungs clear, diminished in bases. IS encouraged. CTx1, no air leak or crepitus noted. pt has chronic cough that causes her to gag per pt, TECHNOLOGY CONSULTANT aware. pt abdomen s/n, denies n/v. clears tolerated. Kimbrough in place. surgical sites intact. chest tube
dressing intact. R groin incision GAGANDEEP, approximated. RIJ cordis/swan maintained. L radial [place] flushed, zeroed, and calibrated. PIV. insulin gtt running as ordered. see worklist for VS, I&O, and assessment.
[2025-10-07 08:09] LABS: Glucose - Point of Care 102 mg/dl (70-99)
[2025-10-07] MEDS: NEURONTIN 100 MG PO ×3 (08:37→20:06)
[2025-10-07] MEDS: ALBUMIN 5% 250 IV ×2 (08:39→10:41)
[2025-10-07] MEDS: SENOKOT 8.6 MG PO ×2 (08:39→20:07)
[2025-10-07] MEDS: PROTONIX 40 MG PO (08:39)
[2025-10-07] MEDS: BACTROBAN 2% OINTMENT 1 APPLIC NASAL ×2 (08:40→20:07)
[2025-10-07] MEDS: MUCINEX 600 MG PO ×2 (09:31→20:06)
--- NOTE | 2025-10-07 09:34 | W.PN.INTV ---
Today's Communication / Plan
Recommendations
Doing well post extubation
Weaning pressors
Insulin gtt ongoing
Further postop management per team
Assessment
-
65-year-old female with past history of severe mitral insufficiency, A-fib, pulmonary hypertension presenting for elective cardiac surgery. She has known history of degenerative mitral valve disease with severe insufficiency, did have complaints of
chronic fatigue. Underwent mitral valve repair on 10/06/2025 and postoperatively transferred to CVICU for further management.
Severe [place] s/p Right mini thoracotomy/Radical mitral valve repair/Cryo left atrial maze, left atrial appendage exclusion 10/06/25
Chronic fatigue
Perioperative mechanical ventilation
Postoperative anemia
Acute on chronic thrombocytopenia
Conditions present CROSSCUTTER ROLLED GLASS
Permanent a-fib on Xarelto
Pulmonary Hypertension
RLS
Hypothyroidism
Intellectual disability, brother is power of fluid pump operator
Plan
S/p MVR/maze POD #1
Titrate off pressors per protocol
ECHO reviewed with normal function
PA catheter readings reviewed
Management of chest tubes per primary service
Pain control
RASS goal of 0 to -1
Intubated for procedure, extubated and doing well
ABG(s) reviewed/adequate
CXR with stable post changes
Maintain supplement oxygen as needed
No prior history of pulmonary disease
No prior PFTs for review
Can add nebulizers if needed
Aspiration precautions
Encouraged incentive spirometry, OOB/ambulation/early mobility
Advance diet as tolerated following extubation
GI prophylaxis if indicated for mechanical ventilation >48 hours
Monitor critical I/O's
Kimbrough/chest tube output
Hb/platelets postoperatively stable
Trend CBC for now
Can transfuse if indicated for Hb <7, plt <50 in surgical patients
DVT prophylaxis including SCDs
Insulin protocol initiated and ongoing
Transition to SQ/off as indicated per team
Diagnostic Data
Chest X-Ray: 10/06/25- Endotracheal tube with the tip 3.5 cm above the corinne. Right internal jugular [place] catheter with the tip in the main pulmonary artery. Chest tubes in place. No focal consolidation, pleural effusion, or pneumothorax. The
cardia mediastinal silhouette is normal. Mitral valve prosthesis and a left atrial appendage clip. Mild thoracic dextroscoliosis.
CT Scan: CHEST 09/13/25- 1. Mild aortic atherosclerotic changes without aneurysmal dilation or flow limiting stenosis.
2. Moderate cardiomegaly. Marked left atrial enlargement.
3. Anatomic variation with replaced common hepatic artery as above.
4. Bilateral renal cortical thinning and scarring. Nonobstructive left nephrolithiasis. Small probable renal cysts as above. Left renal exophytic 4.4 cm benign simple cyst.
5. Small focus of gas in the antidependent position in the urinary bladder, question recent catheterization. In the absence of recent procedure or catheterization, infection would be a consideration.
Echo: CEDRIC 10/06/25- Overall LVEF is approximately 55% with no RWMA. Mild concentric left ventricular hypertrophy. Massively dilated left atrium. Severely dilated right atrium. Dilated coronary sinus (diameter = 1.3 cm). IAS is quite elongated due
to the biatrial dilation but no PFO. Mild to moderate tricuspid regurgitation. Severe mitral regurgitation. MV leaflets appear myxomatous. MR jet is anteriorly directed emanating from P2 and coursing to A1. MR etiology is from P2 prolapse,
annular dilation, and redundant leaflets. Mild sessile atheroma seen in the descending aorta and distal arch.
[facility] 04/07/25- 1. No obstructive coronary artery disease. 2. Elevated right and left-sided filling pressures
PFT's:
Reports and relevant images were personally reviewed.
Critical Care time 31 mins -- The patient is admitted for acute critical illness for the treatment of vital organ failure and/or prevention of further life-threatening conditions. Total care includes time spent in review of history, physical exam,
medications, hemodynamic/ventilator parameters, laboratory data, imaging and discussion with house staff, pharmacy, respiratory therapy, marine equipment design engineer, and nursing.
Subjective Dataa
Subjective Data
Date of Service:
Date of Service: October 07, 2025
Chief Complaint: Tacking Stitch Remover Follow Up
Subjective:
Extubated and doing well
Remains on pressors/insulin
Objective Data
Data Reviewed
Vital Signs / I&O / Oxygen:
Vital Signs
Temp Pulse Resp BP Pulse Ox
97.9 F 67 14 109/59 100
10/07/25 08:00 10/07/25 09:00 10/07/25 09:00 10/07/25 09:00 10/07/25 09:00
Intake and Output
10/06/25 10/07/25 10/08/25
06:59 06:59 06:59
Intake Total 2026.1 / 2058.9 565.2 / 565.2
Output Total 2069 / 2119 160 / 160
Balance -42.9 / -60.1 405.2 / 405.2
SaO2 100
Nasal Cannula flow liters per 2
minute
Physical Exam
General: Comfortable and Other (NAD)
HEENT: Normocephalic, Anicteric and Moist Mucous Membranes
Cardiovascular: S1-S2 and Regular Rhythm
Respiratory: Clear, Non-Labored Respirations and Chest Tube
GI: Soft, Non Distended and Non Tender
Neurology: Awake, Alert, Oriented and No Motor Deficits
Skin: Warm, Dry and Good Color
Labs/Micro/Reports
Lab Data
10/07/25 03:07
10/07/25 03:07
Laboratory Results
10/06/25 10/06/25 10/07/25
12:01 15:54 03:07
PT 22.5 H 18.6 H
INR 1.96 1.54
APTT 35.7 H
pH 7.43 7.34 L
pCO2 37 H 46 H
pO2 188 H 158 H
HCO3 24.6 24.8
O2 Delivery Level Vent
[2025-10-07 10:12] LABS: Glucose - Point of Care 77 mg/dl (70-99)
[2025-10-07] MEDS: NSS IV (10:49)
[2025-10-07 11:17] LABS: Glucose - Point of Care 93 mg/dl (70-99)
[2025-10-07] MEDS: ROXICODONE 2.5 MG PO (11:23)
--- NOTE | 2025-10-07 11:55 | PTCARENOTE ---
pt VSS, Albumin 5% given x2 as ordered. pt c/o R shoulder pain, 2.5mg PO Roxicodone given.
--- NOTE | 2025-10-07 11:55 | W.PN.ANS.POP ---
Anesthesia Post Operative
- Anesthesia Post Op Note
Vital Signs Stable-See Nursing Note: Yes
Airway Patent: Yes
Adequate Pain Control: Yes
Change in Mental Status: No
Current Postoperative Nausea & Vomiting: No
Anesthesia Complications: No
General Anesthetic Recall: No
Unplanned Admission: No
Post Op Hydration Adequate: Yes
[2025-10-07 12:09] LABS: Glucose - Point of Care 92 mg/dl (70-99)
[2025-10-07] MEDS: FERRLECIT 110 MG IV (13:00)
[2025-10-07] MEDS: FLEXBUMIN 50 IV ×2 (13:29→22:03)
[2025-10-07] MEDS: LR 250 ML IV (14:36)
[2025-10-07] MEDS: NSS 500 IV (14:41)
--- NOTE | 2025-10-07 16:00 | PTCARENOTE ---
pt VSS, Dobutamine gtt running as ordered. LR given as ordered.
--- NOTE | 2025-10-07 17:56 | PTCARENOTE ---
MATH SPECIALIST aware of MVO2 result. pt OOB to chair x2 assist. CT and V wire dressing changed, serous/serosanguineous drainage around CT, MATH SPECIALIST aware.
--- NOTE | 2025-10-07 18:29 | W.PN.CARDCBS ---
Today's Communication / Plan
-
Doing well postop
Appreciate efforts of CT surgery
Continue supportive care
Impression / Plan
-
Primary Wirer: Dr. Lozada
Assessment:
Severe mitral valve insufficiency with significant annular dilatation status post radical MVR via right minithoracotomy, cryo LA MAZE, DIEGO clip 10/06/2025
Postop thrombocytopenia
Chronic atrial fibrillation
Chronic anticoagulation with Xarelto
Severely dilated LA
Hypertension
Hypothyroidism
Restless leg syndrome
CEDRIC 03/21/2025: EF 60%, severe MR due to prolapse of posterior leaflet, predominantly P2 segment, mild to moderate TR, PAP 28 mmHg
Plan:
Doing well postoperatively.
Amiodarone, metoprolol, and aspirin on hold
low-dose dobutamine
Chest tube still in
Platelets still low but no clinical bleeding
Rhythm is atrial fibrillation, eventual restart of anticoagulation, amiodarone, metoprolol
Progress Note - Wirer
Subjective
Date of Service: October 07, 2025:
Now postop day 1 status post radical mitral valve repair via right minithoracotomy with cryo maze and left atrial appendage clip.
Predominantly in atrial fibrillation, not requiring pacing, amiodarone currently on hold, beta-brianna currently on hold
Medications reviewed
Data as below, hemodynamics satisfactory, PAD is relatively low, receiving saline bolus, has received bicarb, currently off all drips
Telemetry atrial fib
91/66, pulse 70s, respiratory 26, diminished breath sounds predominantly right base, neck veins okay, [place] still in place, irregular rate and rhythm no murmurs but mild friction rub, no edema
Chest x-ray today: [place] in place, chest tubes in place left atrial appendage clip seen, lungs look surprisingly clear
ECG atrial fibrillation, left axis deviation, cannot exclude septal ME, PVC versus aberrant conduction, QRS widening, LVH
Hemoglobin 10.1, BUN and creatinine are 15 and 0.8
Objective
Labs:
10/07/25 03:07
10/07/25 03:07
Labs
Hgb 10.1 g/dL (12.0-16.0) L 10/07/25 03:07
Hct 32.5 % (37.0-47.0) L 10/07/25 03:07
Plt Count 58 10^3/uL (130-400) L 10/07/25 03:07
PT 18.6 Sec (11.4-14.6) H 10/07/25 03:07
INR 1.54 10/07/25 03:07
APTT 35.7 Sec (23.4-35.0) H 10/06/25 12:01
Sodium 148 mmol/L (135-145) H 10/07/25 03:07
Potassium 3.9 mmol/L (3.5-5.1) 10/07/25 03:07
BUN 15 mg/dl (7-17) 10/07/25 03:07
Creatinine 0.8 mg/dL (0.6-1.0) 10/07/25 03:07
Glucose 117 mg/dl (70-99) H 10/07/25 03:07
Vital Signs and I&O:
Vital Signs
Temp Pulse Resp BP Pulse Ox
37.2 C 79 26 91/66 95
10/07/25 17:00 10/07/25 18:00 10/07/25 18:00 10/07/25 18:00 10/07/25 18:00
Vital Signs
Temp Pulse Resp BP Pulse Ox
37.2 C 79 26 91/66 95
10/07/25 17:00 10/07/25 18:00 10/07/25 18:00 10/07/25 18:00 10/07/25 18:00
Intake & Output
10/05/25 10/06/25 10/07/25 10/08/25
07:59 07:59 07:59 07:59
Intake Total 2058.9 / 2116.7 1512.3 / 1512.3
Output Total 2119 420 / 420
Balance -60.1 / -32.3 1092.3 / 1092.3
Physical Exam
Physical Exam
See above
--- NOTE | 2025-10-07 19:00 | PTCARENOTE ---
assumed care of patient @ 1900. recieved pt sitting in chair
Neuro - Aox3. slow speech at times, hx developmental delay
CV - Currently Afib/aflutter on tele 70s bpm, V wire hooked to box turned off. +PP, -E. Paps and CVP low in chair while upright, 20/5, ~ 2-3.
Lungs- clear b/l on ra satting 94 percent.. CTx1 to wall suction no air leak, tidaling or crepitus noted. serous drainage around chest tube site redressed. IS encouraged. pt has chronic post nasal/ dry heaving episodes.
GI - belly flat, hypoactive. tolerating diet
- wick present draining clear yellow urine.
Skin- R groin inscision closed with glue, CDI GAGANDEEP. R axilla and R breast inscisions closed with glue, CDI MISSILE MECHANIC.
Lines- R IJ cordis with swan at 50. L forearm a line, R forearm PIV. all patent. central lines zeroed, flushed.
Meds - dobut at 2.5
pt resting with call lackey within reach .
[2025-10-07] MEDS: PACERONE 200 MG PO (22:03)
[2025-10-08] VITALS (46 sets, daily range): BP systolic 84–143; BP diastolic 45–77
[2025-10-08] MEDS: ROXICODONE 2.5 MG PO ×3 (03:07→20:21)
--- NOTE | 2025-10-08 03:37 | W.PN.CT ---
Today's Communication / Plan
-
Plan:
-No major issues overnight. Hemodynamically and neurologically intact
-On Dobutamine gtt @ 2.5 mcg/kg/min. Will wean as tolerated
-Last CI 2.34, MVO2 62.1%, 24hr U/O 680 mL
-Monitor chest tube drainage for possible D/C: R pleural into pericardium 120/275. CxR this AM look clear with mild left basilar atelectasis/effusion on my assessment, F/U official report
-Acute postop bradycardia has resolved, currently in rate controlled a-fib 70-90's, PW @ backup VVI of 40/5. Resumed PO Amiodarone last night
-Maintain temporary PW, will eventually cut
-Eventual resumption of anticoagulation, was on Xarelto @ home
-Monitor plts, 62-> 69-> 58-> 41; ASA on hold. Will discuss sending HIT panel. Pt with known thrombocytopenia, plts 120 preop
-Will hold AM dose of BB while on Dobutamine
-Cont. current meds (Dobutamine, Levothyroxine)
-Will maintain swan and a-line while on Dobutamine gtt
-Will maintain wick catheter for accurate I/O's while on Dobutamine
-Maintain cordis
-Encourage use of IS
-OOB into chair/Ambulate
-Will repeat echo tomorrow 10/09 to reassess MV repair
Assessment / Plan
-
Assessment:
-S/P Right mini thoracotomy with right femoral artery and vein cannulation under CEDRIC guidance/ Radical mitral valve repair (free edge remodeling of P1 and P2 as well as P2 and P3, imbrication of P2 and P3, placement of 3 [place]-Norberto sutures with 2 to
the posterior leaflet and 1 to the anterior leaflet, 36 mm band annuloplasty)/ Cryo left atrial maze, left atrial appendage exclusion, by Dr. gonsales, 10/06/25, pod#2
-Myxomatous mitral valve degeneration with severe insufficiency, type II pathology as well as significant annular dilatation [atrial functional]
-Chronic atrial fibrillation with severely dilated left atrium
-Mild-moderate TR
-Massively dilated left atrium
-Severely dilated right atrium
-Dilated coronary sinus (1.3 cm)
-LVEF 55% per intraop CEDRIC
-Hypothyroidism
-Restless leg syndrome
-Chronic cough
-Thrombocytopenia
-Acute postop blood loss/Anemia (stable, received cell saver intraop)
-Acute postop thrombocytopenia on chronic thrombocytopenia (stable, no active bleed)
-Acute postop atelectasis
-Acute postop hypovolemia with subsequent hypervolemia
-Acute postop bradycardia
-Acute postop hypernatremia, 148
-Acute postop hypokalemia/hyperkalemia
Discussed patient care with: Cardiology, Nursing, Respiratory Therapy, Pharmacy and Care Team
Subjective
Procedure
S/P Right mini thoracotomy with right femoral artery and vein cannulation under CEDRIC guidance/ Radical mitral valve repair (free edge remodeling of P1 and P2 as well as P2 and P3, imbrication of P2 and P3, placement of 3 [place]-Norberto sutures with 2 to
the posterior leaflet and 1 to the anterior leaflet, 36 mm band annuloplasty)/ Cryo left atrial maze, left atrial appendage exclusion, by Dr. gonsales, 10/06/25
-
Date of Service: October 08, 2025
Pt c/o mild incisional pain, otherwise feels well
Objective Data
-
PT 18.6 Sec (11.4-14.6) H 10/07/25 03:07
INR 1.54 10/07/25 03:07
APTT 35.7 Sec (23.4-35.0) H 10/06/25 12:01
Vital Signs
Vital Signs
Temp Pulse Resp BP Pulse Ox
99.2 F 89 17 113/65 97
10/08/25 03:00 10/08/25 03:10 10/08/25 03:10 10/08/25 03:00 10/08/25 03:10
CT Intake/Output/Weight
10/07/25 10/07/25 10/08/25
06:59 18:59 06:59
Intake Total 457.4 / 2059.9 1545.1 / 2301.3 756.2 / 2301.3
Output Total 655 / 2120 470 / 815 345 / 815
Balance -197.6 / -60.1 1075.1 / 1486.3 411.2 / 1486.3
SaO2: 97 (RA)
Physical Exam
-
General: Awake, Oriented and AOx3
Cardiovascular: Irregular rate & rhythm (a-fib), No Murmurs, No Rub and No Gallop
Respiratory: Decreased Breath Sounds (at bases, otherwise clear)
Sternum: Stable
Incision: Clean, Dry, Intact and Dressing Intact
Extremities: Other (+trace edema)
Data Reviewed
-
Lab Results: Results Reviewed
Medications: Active Meds Reviewed
Chest X-Ray: Report Reviewed and Image Reviewed
ECG: Report Reviewed and Image Reviewed
[2025-10-08 04:02] LABS: Blood Urea Nitrogen 16 mg/dl (7-17); Calcium 8.6 mg/dl (8.4-10.2); Carbon Dioxide 26 mmol/L (22-30); Chloride 108 mmol/L (98-107); Estimated Creatinine Clearance 54 ml/min; Glucose 128 mg/dl (70-99); Magnesium 2.2 mg/dl (1.6-2.3); Potassium 4.1 mmol/L (3.5-5.1); Sodium 139 mmol/L (135-145); eGFR > 60.00
[2025-10-08 04:20] LABS: Hematocrit 28.0 % (37.0-47.0); Hemoglobin 9.0 g/dL (12.0-16.0); Mean Corp Hgb Conc. 32.1 g/dL (33.0-37.0); Mean Corpuscular Volume 85.6 fL (81.0-99.0); Platelet Count 41 10^3/uL (130-400); Red Cell Dist. Width 14.8 % (11.5-14.5)
[2025-10-08] MEDS: TYLENOL 975 MG PO ×3 (06:53→20:22)
[2025-10-08] MEDS: SYNTHROID 50 MCG PO (06:53)
[2025-10-08] MEDS: FLEXBUMIN 50 IV (06:54)
[2025-10-08 07:07] LABS: ALT (SGPT) < 10 U/L (0-35); AST (SGOT) 53 U/L (14-36); Albumin 3.2 g/dl (3.5-5.0); Alkaline Phosphatase 42 U/L (38-126); Total Protein 5.2 g/dl (6.3-8.2)
[2025-10-08] MEDS: DDAVP 53.5 MCG IV (07:29)
--- NOTE | 2025-10-08 07:38 | W.PN.INTV ---
Today's Communication / Plan
Recommendations
Remains on low dose dobutamine, titrating down
Chest tube management per team
Encouraged OOB, PT, ambulation
Remains in CV
Assessment
-
65-year-old female with past history of severe mitral insufficiency, A-fib, pulmonary hypertension presenting for elective cardiac surgery. She has known history of degenerative mitral valve disease with severe insufficiency, did have complaints of
chronic fatigue. Underwent mitral valve repair on 10/06/2025 and postoperatively transferred to CVICU for further management.
Severe AR s/p Right mini thoracotomy/Radical mitral valve repair/Cryo left atrial maze, left atrial appendage exclusion 10/06/25
Chronic fatigue
Perioperative mechanical ventilation
Postoperative anemia
Acute on chronic thrombocytopenia
Conditions present MANAGER SCHEDULING
Permanent a-fib on Xarelto
Pulmonary Hypertension
RLS
Hypothyroidism
Intellectual disability, brother is power of claim attorney
Plan
S/p MVR/maze POD #2
Titrate off pressors per protocol--remains on low dose dobutamine
ECHO reviewed with normal function
PA catheter readings reviewed
Management of chest tubes per primary service
Pain control
RASS goal of 0 to -1
Intubated for procedure, extubated and doing well
ABG(s) reviewed/adequate
CXR with stable post changes
Maintain supplement oxygen as needed
No prior history of pulmonary disease
No prior PFTs for review
Can add nebulizers if needed
Aspiration precautions
Encouraged incentive spirometry, OOB/ambulation/early mobility
Advance diet as tolerated following extubation
GI prophylaxis if indicated for mechanical ventilation >48 hours
Monitor critical I/O's
Kimbrough/chest tube output
Hb/platelets postoperatively stable
Trend CBC for now
Can transfuse if indicated for Hb <7, plt <50 in surgical patients
DVT prophylaxis including SCDs
Insulin protocol initiated and ongoing
Transition to SQ/off as indicated per team
Diagnostic Data
Chest X-Ray: 10/06/25- Endotracheal tube with the tip 3.5 cm above the corinne. Right internal jugular [place]-Jose Cruz catheter with the tip in the main pulmonary artery. Chest tubes in place. No focal consolidation, pleural effusion, or pneumothorax. The
cardia mediastinal silhouette is normal. Mitral valve prosthesis and a left atrial appendage clip. Mild thoracic dextroscoliosis.
CT Scan: CHEST 09/13/25- 1. Mild aortic atherosclerotic changes without aneurysmal dilation or flow limiting stenosis.
2. Moderate cardiomegaly. Marked left atrial enlargement.
3. Anatomic variation with replaced common hepatic artery as above.
4. Bilateral renal cortical thinning and scarring. Nonobstructive left nephrolithiasis. Small probable renal cysts as above. Left renal exophytic 4.4 cm benign simple cyst.
5. Small focus of gas in the antidependent position in the urinary bladder, question recent catheterization. In the absence of recent procedure or catheterization, infection would be a consideration.
Echo: CEDRIC 10/06/25- Overall LVEF is approximately 55% with no RWMA. Mild concentric left ventricular hypertrophy. Massively dilated left atrium. Severely dilated right atrium. Dilated coronary sinus (diameter = 1.3 cm). IAS is quite elongated due
to the biatrial dilation but no PFO. Mild to moderate tricuspid regurgitation. Severe mitral regurgitation. MV leaflets appear myxomatous. MR jet is anteriorly directed emanating from P2 and coursing to A1. MR etiology is from P2 prolapse,
annular dilation, and redundant leaflets. Mild sessile atheroma seen in the descending aorta and distal arch.
[facility] 04/07/25- 1. No obstructive coronary artery disease. 2. Elevated right and left-sided filling pressures
PFT's:
Reports and relevant images were personally reviewed.
Critical Care time 31 mins -- The patient is admitted for acute critical illness for the treatment of vital organ failure and/or prevention of further life-threatening conditions. Total care includes time spent in review of history, physical exam,
medications, hemodynamic/ventilator parameters, laboratory data, imaging and discussion with house staff, pharmacy, respiratory therapy, landscape architecture professor, and nursing.
Subjective Dataa
Subjective Data
Date of Service:
Date of Service: October 08, 2025
Chief Complaint: Space Officer Follow Up
Subjective:
Remains on low dose dobutamine gtt
No new complaints
Objective Data
Data Reviewed
Vital Signs / I&O / Oxygen:
Vital Signs
Temp Pulse Resp BP Pulse Ox
99.7 F 80 17 101/63 95
10/08/25 07:00 10/08/25 07:00 10/08/25 07:00 10/08/25 06:00 10/08/25 06:00
Intake and Output
10/07/25 10/08/25 10/09/25
06:59 06:59 06:59
Intake Total 2026.1 / 2058.9 2344.9 / 2366.7 21.8 / 21.8
Output Total 2069 / 2119 920 / 1075 155 / 155
Balance -42.9 / -60.1 1424.9 / 1291.7 -133.2 / -133.2
SaO2 95
Nasal Cannula flow liters per 2
minute
Physical Exam
General: Comfortable and Other (NAD)
HEENT: Normocephalic, Anicteric and Moist Mucous Membranes
Cardiovascular: S1-S2 and Regular Rhythm
Respiratory: Clear, Non-Labored Respirations and Chest Tube
GI: Soft, Non Distended and Non Tender
Neurology: Awake, Alert, Oriented and No Motor Deficits
Skin: Warm, Dry and Good Color
Labs/Micro/Reports
Lab Data
10/08/25 03:14
10/08/25 03:14
Microbiology
10/06/25 07:00 Urine Urine Culture - Final
NO GROWTH
[2025-10-08 07:44] LABS: INR 1.84; PT 21.4 Sec (11.4-14.6)
--- NOTE | 2025-10-08 08:00 | PTCARENOTE ---
pt received from previous RN, oriented, OOB in chair. Aflutter w/ occasional PVCs on the monitor, HR 70-90s. V wire in place. SBP 100-110s. palpable pulses. PAP 20-30s/10s, CVP~13. CI 2.08. Dobutamine gtt running as ordered. PREVENTATIVE MAINTENANCE TECHNICIAN aware of
hemodynamics. pt on RA, 92-96% POX. lungs clear, diminished in bases. IS encouraged, 250-500ml. CTx1, no air leak or crepitus noted. PREVENTATIVE MAINTENANCE TECHNICIAN aware of output. pt abdomen s/n, denies n/v. diet tolerated, poor appetite. Kimbrough in place. surgical sites
intact. chest tube dressing intact, old drainage. R groin incision CHEMICAL DEPENDENCY PROFESSIONAL, approximated. RIJ cordis/samson maintained. L radial [place] flushed, zeroed, and calibrate, positional at times. PIV. PREVENTATIVE MAINTENANCE TECHNICIAN aware of labs. lab work drawn, DDAVP given as ordered. see
worklist for VS, I&O, and assessment.
[2025-10-08] MEDS: MAGNESIUM OXIDE 400 MG PO ×2 (08:55→19:41)
[2025-10-08] MEDS: PACERONE 200 MG PO ×3 (08:55→20:21)
[2025-10-08] MEDS: NEURONTIN 100 MG PO ×3 (08:55→20:21)
[2025-10-08] MEDS: PROTONIX 40 MG PO (08:55)
[2025-10-08] MEDS: MUCINEX 600 MG PO ×2 (08:55→19:41)
[2025-10-08] MEDS: SENOKOT 8.6 MG PO (08:55)
[2025-10-08] MEDS: BACTROBAN 2% OINTMENT 1 APPLIC NASAL ×2 (08:58→19:41)
[2025-10-08] MEDS: NSS IV (10:54)
[2025-10-08] MEDS: LASIX 40 MG IV (10:57)
--- NOTE | 2025-10-08 11:30 | PTCARENOTE ---
pt VSS, OOB in chair for lunch. MEDICAL MICROBIOLOGIST aware of hemodynamics. Lasix given as ordered. pt attempted BSC x2 assist, +flatus, no BM. brother and sister at bedside to visit.
[2025-10-08] MEDS: FERRLECIT 110 MG IV (13:38)
--- NOTE | 2025-10-08 15:30 | PTCARENOTE ---
pt VSS, resting in bed between care. Dobutamine gtt running as ordered. chest tube dressing changed.
--- NOTE | 2025-10-08 17:39 | PTCARENOTE ---
CLINICAL ADVISOR aware of MVO2 and hemodynamics, no orders received. pt OOB to chair w/ assist. pt uses BSC, +BM.
[2025-10-08] MEDS: ALBUMIN 5% 250 IV (19:07)
--- NOTE | 2025-10-08 19:30 | PTCARENOTE ---
Patient received from RN @ 1900. Patient sitting in chair w/ call lackey in reach. AOx3. A. Flutter/A. Fib on monitor. BP 129/5 HR 91. Heart sounds audible. V-wires set to 70/0.1 Radial and pedal pulses present. Trace generalized edema noted.
IS 250 POX 94% RA. Chronic dry harsh cough noted. Lungs diminished in bases bilaterally. Right lateral CT set to -20 suction draining serosanguineous fluid. Bowel sounds normoactive. Patient confirms BM. Kimbrough draining clear yellow urine. All
surgical sites C/D/I. RIJ cordis w/ swan @ 50 PAP 24/7 CVP 4 CI 2.18. Dobut infusing per order. See worklist for more details.
[2025-10-08] MEDS: SENOKOT PO (19:38)
[2025-10-08] MEDS: ZOFRAN 4 MG IV (20:32)
[2025-10-08] MEDS: TESSALON PERLES 100 MG PO (21:38)
--- NOTE | 2025-10-08 23:15 | PTCARENOTE ---
Patient reassessed. A. Flutter on monitor. BP 104/54 HR 85 POX 94% RA. Harsh cough persists. Urine output [address] PA Ed aware.
[2025-10-08] MEDS: DILAUDID 0.25 MG IV (23:47)
[2025-10-09] VITALS (29 sets, daily range): BP systolic 69–137; BP diastolic 43–90; PULSE 74; O2SAT 97–98; BMI 21.1
[2025-10-09] MEDS: ALBUMIN 5% 250 IV (00:24)
[2025-10-09 03:47] LABS: INR 1.93; PT 22.2 Sec (11.4-14.6)
--- NOTE | 2025-10-09 03:57 | W.PN.CT ---
Today's Communication / Plan
-
Plan:
-No major issues overnight. Hemodynamically and neurologically intact
-On Dobutamine gtt @ 1.5 mcg/kg/min. Will wean as tolerated
-Last CI 2.23, MVO2 57.3%, 24hr U/O 1730 mL
-Monitor chest tube drainage for possible D/C: R pleural into pericardium 120/520. CxR this AM look clear with mild left basilar atelectasis/effusion on my assessment, F/U official report
-Acute postop bradycardia has resolved, currently in rate controlled a-fib 70-90's, PW @ backup VVI of 40/5. Resumed PO Amiodarone on 10/07
-Maintain temporary PW, will eventually cut
-Eventual resumption of anticoagulation, was on Xarelto @ home
-Monitor INR 1.54 -> 1.84 -> 1.93
-Monitor h/h 8.3/25.2 today, down from 9.0/28 (likely hemodilutional from both 25% and 5% Albumin pt has been receiving)
-Monitor plts, 62-> 69-> 58-> 41-> 33 (likely partly hemodilutional); Received DDAVP yesterday 10/08. ASA is on hold. Pt with known thrombocytopenia, plts 120 preop. Will discuss obtaining HIT panel
-Monitor hyponatremia, 133 down from 139 yesterday. Gentle diuresis today with Lasix 20 mg IV, as pt is petite
-Will replete K, 3.4, mg 1.9, and ionize ca++ 1.12
-Will hold AM dose of BB while on Dobutamine
-Cont. current meds (Dobutamine, Levothyroxine)
-Will maintain swan and a-line while on Dobutamine gtt
-Will maintain wick catheter for accurate I/O's while on Dobutamine
-Maintain cordis
-Encourage use of IS
-OOB into chair/Ambulate
-Will repeat echo today 10/09 to reassess MV repair
Assessment / Plan
-
Assessment:
-S/P Right mini thoracotomy with right femoral artery and vein cannulation under CEDRIC guidance/ Radical mitral valve repair (free edge remodeling of P1 and P2 as well as P2 and P3, imbrication of P2 and P3, placement of 3 [place]-Norberto sutures with 2 to
the posterior leaflet and 1 to the anterior leaflet, 36 mm band annuloplasty)/ Cryo left atrial maze, left atrial appendage exclusion, by Dr. gonsales, 10/06/25, pod#3
-Myxomatous mitral valve degeneration with severe insufficiency, type II pathology as well as significant annular dilatation [atrial functional]
-Chronic atrial fibrillation with severely dilated left atrium
-Mild-moderate TR
-Massively dilated left atrium
-Severely dilated right atrium
-Dilated coronary sinus (1.3 cm)
-LVEF 55% per intraop CEDRIC
-Hypothyroidism
-Restless leg syndrome
-Chronic cough
-Thrombocytopenia
-Acute postop blood loss/Anemia (stable, received cell saver intraop)
-Acute postop thrombocytopenia on chronic thrombocytopenia (stable, no active bleed)
-Acute postop atelectasis
-Acute postop hypovolemia with subsequent hypervolemia
-Acute postop bradycardia
-Acute postop hypernatremia, 148
-Acute postop hypokalemia/hyperkalemia
Discussed patient care with: Cardiology, Nursing, Respiratory Therapy, Pharmacy and Care Team
Subjective
Procedure
S/P Right mini thoracotomy with right femoral artery and vein cannulation under CEDRIC guidance/ Radical mitral valve repair (free edge remodeling of P1 and P2 as well as P2 and P3, imbrication of P2 and P3, placement of 3 [place]-Norberto sutures with 2 to
the posterior leaflet and 1 to the anterior leaflet, 36 mm band annuloplasty)/ Cryo left atrial maze, left atrial appendage exclusion, by Dr. gonsales, 10/06/25
-
Date of Service: October 09, 2025
Pt c/o mild incisional pain, chronic cough with associated N/V, otherwise feels well
Objective Data
-
PT 21.4 Sec (11.4-14.6) H 10/08/25 07:13
INR 1.84 10/08/25 07:13
APTT 35.7 Sec (23.4-35.0) H 10/06/25 12:01
Vital Signs
Vital Signs
Temp Pulse Resp BP Pulse Ox
99.4 F 72 17 104/60 93
10/09/25 02:58 10/09/25 03:00 10/09/25 03:00 10/09/25 03:00 10/09/25 03:00
CT Intake/Output/Weight
10/08/25 10/08/25 10/09/25
06:59 18:59 06:59
Intake Total 799.8 / 2366.7 570.3 / 1040.2 469.9 / 1040.2
Output Total 450 / 1075 1785 / 2155 370 / 2155
Balance 349.8 / 1291.7 -1214.7 / -1114.8 99.9 / -1114.8
SaO2: 93 (RA)
Physical Exam
-
General: Awake, Oriented and AOx3
Cardiovascular: Irregular rate & rhythm (a-fib), No Murmurs, No Rub and No Gallop
Respiratory: Decreased Breath Sounds (at bases, otherwise clear)
Sternum: Stable
Incision: Clean, Dry, Intact and Dressing Intact
Extremities: Other (+trace)
Data Reviewed
-
Lab Results: Results Reviewed
Medications: Active Meds Reviewed
Chest X-Ray: Report Reviewed and Image Reviewed
ECG: Report Reviewed and Image Reviewed
[2025-10-09 04:10] LABS: Blood Urea Nitrogen 16 mg/dl (7-17); Calcium 8.1 mg/dl (8.4-10.2); Carbon Dioxide 26 mmol/L (22-30); Chloride 102 mmol/L (98-107); Estimated Creatinine Clearance 64 ml/min; Glucose 113 mg/dl (70-99); Magnesium 1.9 mg/dl (1.6-2.3); Potassium 3.4 mmol/L (3.5-5.1); Sodium 133 mmol/L (135-145); eGFR > 60.00
[2025-10-09 04:12] LABS: Hematocrit 25.2 % (37.0-47.0); Hemoglobin 8.3 g/dL (12.0-16.0); Mean Corp Hgb Conc. 32.9 g/dL (33.0-37.0); Mean Corpuscular Volume 83.7 fL (81.0-99.0); Platelet Count 33 10^3/uL (130-400); Red Cell Dist. Width 14.3 % (11.5-14.5)
[2025-10-09] MEDS: KCL 100 IV (04:34)
[2025-10-09] MEDS: CALCIUM GLUCONATE 130 MG IV (04:43)
--- NOTE | 2025-10-09 04:53 | PTCARENOTE ---
Patient reassessed. A. Flutter on monitor. BP 111/58 HR 80 POX 95% RA. Patient continues to have strong dry cough. Urine output ~20mL/hr CT PA Ed aware. Labs obtained.
[2025-10-09] MEDS: REGLAN 10 MG IV ×2 (05:38→21:15)
--- NOTE | 2025-10-09 05:41 | PTCARENOTE ---
Patient having forceful coughing fits repetitively. Patient coughing and vomiting white and clear secretions. CT PA Ed aware. Reglan given.
[2025-10-09] MEDS: SYNTHROID 50 MCG PO (06:42)
[2025-10-09] MEDS: TYLENOL 975 MG PO ×2 (06:42→20:58)
--- NOTE | 2025-10-09 08:23 | W.PN.INTV ---
Today's Communication / Plan
Recommendations
Off pressors
Goal BG 110�140
Encourage incentive spirometer
Encouraged OOB, PT, ambulation
Patient is now being downgraded to CVICU�telemetry status. No additional recommendations at this time. Sidewalk Inspector/Pulmonary service will now sign off. Please reconsult if there are any additional questions/concerns, or if patient's respiratory
status deteriorates.
Assessment
-
65-year-old female with past history of severe mitral insufficiency, A-fib, pulmonary hypertension presenting for elective cardiac surgery. She has known history of degenerative mitral valve disease with severe insufficiency, did have complaints of
chronic fatigue. Underwent mitral valve repair on 10/06/2025 and postoperatively transferred to CVICU for further management.
Severe CT s/p Right mini thoracotomy/Radical mitral valve repair/Cryo left atrial maze, left atrial appendage exclusion 10/06/25
Chronic fatigue
Perioperative mechanical ventilation
Postoperative anemia
Acute on chronic thrombocytopenia
Conditions present ANESTHESIA ATTENDING
Permanent a-fib on Xarelto
Pulmonary Hypertension
RLS
Hypothyroidism
Intellectual disability, brother is power of sports attorney
Plan
S/p MVR/maze POD #3
Weaned off all pressors
ECHO reviewed with normal function
Management of chest tubes per primary service -being removed today
Pain control
RASS goal of 0 to -1
Intubated for procedure, extubated and doing well
ABG(s) reviewed/adequate
CXR with stable post changes
Maintain SpO2 >90�94% using Supplemental O2 If Needed
No prior history of pulmonary disease
No prior PFTs for review
Can add nebulizers if needed
Aspiration precautions
Encouraged incentive spirometry, OOB/ambulation/early mobility as tolerated
Advance diet as tolerated following extubation
Monitor critical I/O
Monitor H&H and platelet count, transfusing platelets to keep >50k (given postoperative status), and keep Hb >7�8
Trend CBC for now
DVT prophylaxis including SCDs
Insulin gtt now weaned off
Transition to SQ/off as indicated per team
Patient is now being downgraded to CVICU�telemetry status. No additional recommendations at this time. Sidewalk Inspector/Pulmonary service will now sign off. Thank you for allowing us to be involved in the care of this patient. Please reconsult if
there are any additional questions/concerns, or if patient's respiratory status deteriorates.
Diagnostic Data
Chest X-Ray: 10/06/25- Endotracheal tube with the tip 3.5 cm above the corinne. Right internal jugular [place]-Jose Cruz catheter with the tip in the main pulmonary artery. Chest tubes in place. No focal consolidation, pleural effusion, or pneumothorax. The
cardia mediastinal silhouette is normal. Mitral valve prosthesis and a left atrial appendage clip. Mild thoracic dextroscoliosis.
CT Scan: CHEST 09/13/25. Mild aortic atherosclerotic changes without aneurysmal dilation or flow limiting stenosis.
2. Moderate cardiomegaly. Marked left atrial enlargement.
3. Anatomic variation with replaced common hepatic artery as above.
4. Bilateral renal cortical thinning and scarring. Nonobstructive left nephrolithiasis. Small probable renal cysts as above. Left renal exophytic 4.4 cm benign simple cyst.
5. Small focus of gas in the antidependent position in the urinary bladder, question recent catheterization. In the absence of recent procedure or catheterization, infection would be a consideration.
Echo: CEDRIC 10/06/25- Overall LVEF is approximately 55% with no RWMA. Mild concentric left ventricular hypertrophy. Massively dilated left atrium. Severely dilated right atrium. Dilated coronary sinus (diameter = 1.3 cm). IAS is quite elongated due
to the biatrial dilation but no PFO. Mild to moderate tricuspid regurgitation. Severe mitral regurgitation. MV leaflets appear myxomatous. MR jet is anteriorly directed emanating from P2 and coursing to A1. MR etiology is from P2 prolapse,
annular dilation, and redundant leaflets. Mild sessile atheroma seen in the descending aorta and distal arch.
[facility] 04/07/25- 1. No obstructive coronary artery disease. 2. Elevated right and left-sided filling pressures
PFT's:
Reports and relevant images were personally reviewed.
Total time spent today was 57 minutes for this encounter. Time includes reviewing laboratory test/imaging results, reviewing pertinent medical records, obtaining and reviewing medical history, performing an appropriate exam, ordering medications,
tests and procedures. Time also includes documentation of this encounter, coordinating patient care and communicating with other healthcare professionals. Total time does not include separately billed tests performed on this date of service.
Subjective Dataa
Subjective Data
Date of Service:
Date of Service: October 09, 2025
Chief Complaint: Sidewalk Inspector Follow Up
Subjective:
Patient seen and evaluated today at bedside. Resting in bed in no acute distress. Heart rate 60. On room air breathing comfortably.
Review of Systems
General: Other (Negative unless mentioned above)
Objective Data
Data Reviewed
Vital Signs / I&O / Oxygen:
Vital Signs
Temp Pulse Resp BP Pulse Ox
98.6 F 71 20 121/68 96
10/09/25 08:00 10/09/25 08:30 10/09/25 08:30 10/09/25 08:30 10/09/25 08:00
Intake and Output
10/08/25 10/09/25 10/10/25
06:59 06:59 06:59
Intake Total 2344.9 / 2366.7 1103.5 / 1103.5 21.1 / 21.1
Output Total 920 / 1075 2250 / 2250 40 / 40
Balance 1424.9 / 1291.7 -1146.5 / -1146.5 -18.9 / -18.9
SaO2 96
Nasal Cannula flow liters per 2
minute
Physical Exam
General: Respiratory Distress (n), Comfortable and Other (NAD)
HEENT: Normocephalic, Anicteric and Moist Mucous Membranes
Cardiovascular: S1-S2 and Peripheral Edema (n)
Respiratory: Clear, Wheeze (n), Crackles (n) and Non-Labored Respirations
GI: Soft, Non Distended and Non Tender
Neurology: Awake, Alert, Oriented and Tremors (n)
Skin: Warm, Dry and Good Color
Labs/Micro/Reports
Lab Data
10/09/25 03:28
10/09/25 03:28
Laboratory Results
10/09/25
03:28
PT 22.2 H
INR 1.93
Microbiology
10/06/25 07:00 Urine Urine Culture - Final
NO GROWTH
[2025-10-09] MEDS: PROTONIX 40 MG PO (09:23)
[2025-10-09] MEDS: NEURONTIN 100 MG PO ×3 (09:23→20:57)
[2025-10-09] MEDS: MUCINEX 600 MG PO ×2 (09:23→20:57)
[2025-10-09] MEDS: BACTROBAN 2% OINTMENT 1 APPLIC NASAL ×2 (09:24→20:57)
[2025-10-09] MEDS: MAGNESIUM OXIDE 400 MG PO ×2 (09:24→20:58)
[2025-10-09] MEDS: SENOKOT 8.6 MG PO (09:24)
[2025-10-09] MEDS: NSS 500 IV (09:24)
--- NOTE | 2025-10-09 09:34 | PTCARENOTE ---
assumed care of pt from previous shift RN, chronic aflutter on tele, VSS, +peripheral pulses on tele, epicardial V wire insulated. Lungs clr, dry cough noted. Pox 95% on RA, coughing and deep breathing encouraged. +bs, poor appetite. Kimbrough draining
zahida. [place] and RP CT removed without incident. Bedside echo completed. Pt denies pain. Surgical sites stable. Plan of care reviewed and questions encouraged.
--- NOTE | 2025-10-09 12:01 | CM ---
priced selina with pts [facility]/perfom RX- her copay is Zero dollars.
[2025-10-09] MEDS: TESSALON PERLES 100 MG PO ×2 (13:35→21:14)
[2025-10-09] MEDS: TYLENOL PO (13:36)
[2025-10-09] MEDS: FERRLECIT 110 MG IV (13:36)
[2025-10-09 15:33] LABS: Hematocrit 28.2 % (37.0-47.0); Hemoglobin 9.1 g/dL (12.0-16.0); Mean Corp Hgb Conc. 32.3 g/dL (33.0-37.0); Mean Corpuscular Volume 85.2 fL (81.0-99.0); Platelet Count 58 10^3/uL (130-400); Red Cell Dist. Width 14.7 % (11.5-14.5)
--- NOTE | 2025-10-09 15:44 | CM ---
priced selina withpts perscript plan- [facility]/perform Mp-[phone], her copay is ZERO dollars.
--- NOTE | 2025-10-09 15:49 | PTCARENOTE ---
VS obtained, assessment stable. Patient resting comfortably. ELIZABETH updated to current BP.
--- NOTE | 2025-10-09 20:28 | PTCARENOTE ---
received pt from previous rn. AAOx4. VSS. A flutter per tele monitor HR 60s. +pulses. trace generalized anasarca noted. V wire insulated. pox 99% on RA. lungs diminished in bases. frequent productive chronic cough. pt voiding in bathroom. pt c/o
nausea see DEC. all surgical sites intact. CT dressing c/d/i. RIJ cordis infusing KVO. PIV x1 intact. plan of care discussed and questions encouraged. call lackey within reach. see worklist for full nursing assessment and nursing interventions.
[2025-10-09] MEDS: SENOKOT PO (21:07)
[2025-10-09] MEDS: DILAUDID 0.25 MG IV (21:33)
[2025-10-10] VITALS (9 sets, daily range): BP systolic 84–143; BP diastolic 56–79; PULSE 66; BMI 21.1
--- NOTE | 2025-10-10 | PTCARENOTE ---
report received from previous RN, walking rounds done. pt in bed, sleeping. VSS. A flutter on monitor HR 50s-60s. +peripheral pulses. epicardial V wire intact and insulated. B/L breath sounds present. POX 99% on RA. +BS. pt voids spontaneously. all
surgical sites stable. RIJ cordis in place w KOV infusing. PIV x1 intact and patent. call lackey within reach. see worklist for full assessment, VS, and interventions.
[2025-10-10 02:21] LABS: Hematocrit 28.3 % (37.0-47.0); Hemoglobin 9.3 g/dL (12.0-16.0); Mean Corp Hgb Conc. 32.9 g/dL (33.0-37.0); Mean Corpuscular Volume 84.2 fL (81.0-99.0); Platelet Count 56 10^3/uL (130-400); Red Cell Dist. Width 14.4 % (11.5-14.5)
[2025-10-10 02:27] LABS: INR 1.63; PT 19.5 Sec (11.4-14.6)
[2025-10-10 02:35] LABS: Blood Urea Nitrogen 12 mg/dl (7-17); Calcium 8.8 mg/dl (8.4-10.2); Carbon Dioxide 28 mmol/L (22-30); Chloride 103 mmol/L (98-107); Estimated Creatinine Clearance 76 ml/min; Glucose 117 mg/dl (70-99); Magnesium 2.2 mg/dl (1.6-2.3); Potassium 4.3 mmol/L (3.5-5.1); Sodium 133 mmol/L (135-145); eGFR > 60.00
--- NOTE | 2025-10-10 03:50 | PTCARENOTE ---
no acute changes in assessment, VSS. pt denies any pain. Aflutter 60s. POX 97% on room air. AM labs drawn and sent. weight obtained. pt sleeping between care.
--- NOTE | 2025-10-10 03:56 | W.PN.CT ---
Today's Communication / Plan
-
Plan:
-No major issues overnight. Hemodynamically and neurologically intact
-Weaned off of Dobutamine gtt yesterday 10/09/25
-Chest tube and wick d/c'd yesterday 10/09/25
-Remains in rate controlled a-fib
-Will resume low dose BB, Amiodarone is currently on hold given postop bradycardia in the 40's
-Maintain temporary PW, will eventually cut
-Eventual resumption of anticoagulation, was on Xarelto @ home
-Monitor INR 1.54 -> 1.84 -> 1.93 -> 1.63
-Monitor h/h 9.3/28.3 today, up from 8.3/25.2 (likely hemodiluted)
-Monitor plts, 62-> 69-> 58-> 41-> 33 -> 58 -> 56 (likely partly hemodiluted); Received DDAVP on 10/08. ASA is on hold. Pt with known thrombocytopenia, plts 120 preopl
-Monitor hyponatremia, 133. Gentle diuresis today with Lasix 20 mg IV, as pt is petite
-Cont. current meds (Toprol XL, Levothyroxine)
-Maintain cordis another day given decreased plts and elevated INR
-Encourage use of IS
-OOB into chair/Ambulate
-Repeat echo yesterday 10/09 showed and intact MV repair with PG/MG of 8/2 mmHg respectively, trace MR; mod-severe TR, LVEF 54%
-Home in 1-2 days
Assessment / Plan
-
Assessment:
-S/P Right mini thoracotomy with right femoral artery and vein cannulation under CEDRIC guidance/ Radical mitral valve repair (free edge remodeling of P1 and P2 as well as P2 and P3, imbrication of P2 and P3, placement of 3 [place]-Norberto sutures with 2 to
the posterior leaflet and 1 to the anterior leaflet, 36 mm band annuloplasty)/ Cryo left atrial maze, left atrial appendage exclusion, by Dr. gonsales, 10/06/25, pod#4
-Myxomatous mitral valve degeneration with severe insufficiency, type II pathology as well as significant annular dilatation [atrial functional]
-Chronic atrial fibrillation with severely dilated left atrium
-Mild-moderate TR
-Massively dilated left atrium
-Severely dilated right atrium
-Dilated coronary sinus (1.3 cm)
-LVEF 55% per intraop CEDRIC
-Hypothyroidism
-Restless leg syndrome
-Chronic cough
-Thrombocytopenia
-Acute postop blood loss/Anemia (stable, received cell saver intraop)
-Acute postop thrombocytopenia on chronic thrombocytopenia (stable, no active bleed)
-Acute postop atelectasis
-Acute postop hypovolemia with subsequent hypervolemia
-Acute postop bradycardia
-Acute postop hypernatremia, 148
-Acute postop hypokalemia/hyperkalemia
Discussed patient care with: Cardiology, Nursing, Respiratory Therapy, Pharmacy and Care Team
Subjective
Procedure
S/P Right mini thoracotomy with right femoral artery and vein cannulation under CEDRIC guidance/ Radical mitral valve repair (free edge remodeling of P1 and P2 as well as P2 and P3, imbrication of P2 and P3, placement of 3 [place]-Norberto sutures with 2 to
the posterior leaflet and 1 to the anterior leaflet, 36 mm band annuloplasty)/ Cryo left atrial maze, left atrial appendage exclusion, by Dr. gonsales, 10/06/25
-
Date of Service: October 10, 2025
Pt c/o mild incisional pain and chronic cough, otherwise feels well
Objective Data
-
Lab Results
10/10/25 02:09
10/10/25 02:09
PT 19.5 Sec (11.4-14.6) H 10/10/25 02:09
INR 1.63 10/10/25 02:09
APTT 35.7 Sec (23.4-35.0) H 10/06/25 12:01
Vital Signs
Vital Signs
Temp Pulse Resp BP Pulse Ox
98.6 F 66 18 115/79 99
10/10/25 00:19 10/10/25 03:49 10/10/25 00:19 10/10/25 03:49 10/10/25 00:19
CT Intake/Output/Weight
10/09/25 10/09/25 10/10/25
06:59 18:59 06:59
Intake Total 533.2 / 1103.5 521.1 / 581.1 60 / 581.1
Output Total 465 / 2250 280 / 680 400 / 680
Balance 68.2 / -1146.5 241.1 / -98.9 -340 / -98.9
SaO2: 99 (RA)
Physical Exam
-
General: Awake, Oriented and AOx3
Cardiovascular: Irregular rate & rhythm (a-fib), No Murmurs, No Rub and No Gallop
Respiratory: Decreased Breath Sounds (at bases, otherwise feels well)
Sternum: Stable
Incision: Clean, Dry, Intact and Dressing Intact
Extremities: Other (+ trace edema)
Data Reviewed
-
Lab Results: Results Reviewed
Medications: Active Meds Reviewed
Chest X-Ray: Report Reviewed and Image Reviewed
ECG: Report Reviewed and Image Reviewed
[2025-10-10] MEDS: SYNTHROID 50 MCG PO (06:32)
[2025-10-10] MEDS: TYLENOL 975 MG PO ×3 (06:32→20:04)
[2025-10-10] MEDS: BACTROBAN 2% OINTMENT 1 APPLIC NASAL (08:46)
[2025-10-10] MEDS: TOPROL XL 12.5 MG PO ×2 (08:46→20:04)
[2025-10-10] MEDS: MAGNESIUM OXIDE 400 MG PO ×2 (08:46→20:04)
[2025-10-10] MEDS: KCL 20 MEQ PO (08:46)
[2025-10-10] MEDS: SENOKOT 8.6 MG PO ×2 (08:46→20:03)
[2025-10-10] MEDS: NEURONTIN 100 MG PO ×3 (08:46→20:04)
[2025-10-10] MEDS: MUCINEX 600 MG PO (08:46)
[2025-10-10] MEDS: PROTONIX 40 MG PO (08:46)
[2025-10-10] MEDS: LASIX 20 MG IV (08:46)
[2025-10-10] MEDS: NSS IV (09:04)
--- NOTE | 2025-10-10 09:05 | PTCARENOTE ---
assumed care of pt from previous shift RN, stas on tele, VSS. + peripheral pulses, no edema noted. Lungs diminished, pox 99% on RA, coughing and deep breathing encouraged. +bs, tolerating PO intake, voids zahida. CT dressing changed, surgical
sites stable. Cordis to be removed, PIV flushes easily. Plan of care reviewed and questions encouraged.
--- NOTE | 2025-10-10 09:31 | W.PN.CARDCBS ---
Today's Communication / Plan
-
Supportive postoperative care
Impression / Plan
-
Primary Breeder Hen Service Technician: Dr. Lozada
Assessment:
Severe mitral valve insufficiency with significant annular dilatation status post radical MVR via right minithoracotomy, cryo LA MAZE, DIEGO clip 10/06/2025
Postop thrombocytopenia
Chronic atrial fibrillation
Chronic anticoagulation with Xarelto
Severely dilated LA
Hypertension
Hypothyroidism
Restless leg syndrome
CEDRIC 03/21/2025: EF 60%, severe MR due to prolapse of posterior leaflet, predominantly P2 segment, mild to moderate TR, PAP 28 mmHg
Plan:
S/P Right mini thoracotomy with right femoral artery and vein cannulation under CEDRIC guidance/ Radical mitral valve repair (free edge remodeling of P1 and P2 as well as P2 and P3, imbrication of P2 and P3, placement of 3 [place]-Norberto sutures with 2 to
the posterior leaflet and 1 to the anterior leaflet, 36 mm band annuloplasty)/ Cryo left atrial maze, left atrial appendage exclusion, by Dr. gonsales, 10/06/25
-Hemodynamically stable
-Repeat echocardiogram 10 09 with intact mitral valve repair and mean gradient 2 mmHg with trace MR. EF 54%. No significant pericardial effusion.
-Weaned off dobutamine 10/09/2025
-Declined by CT surgery: Chest tubes removed, Luis E DC'd to 10/09/2025
-CT surgery may remove temporary pacer wires later today
-Remains in rate controlled atrial fibrillation on low-dose beta-brianna. No further amiodarone given postoperative bradycardia
-Plan to resume Xarelto prior to discharge once CBC has stabilized
-H&H 9.01/27 and platelets remain low at 56
-Agree with plan to diurese with 20 mg IV Lasix today
-Incentive spirometry
-Cardiac rehab
Progress Note - Breeder Hen Service Technician
Subjective
Date of Service: October 10, 2025
Patient was seen and examined sitting out of bed to chair. Denies chest pain or pressure. Denies shortness of breath or lightheadedness. Ambulating with cardiac rehab.
Objective
Labs:
10/10/25 02:09
10/10/25 02:09
Labs
Hgb 9.3 g/dL (12.0-16.0) L 10/10/25 02:09
Hct 28.3 % (37.0-47.0) L 10/10/25 02:09
Plt Count 56 10^3/uL (130-400) L 10/10/25 02:09
PT 19.5 Sec (11.4-14.6) H 10/10/25 02:09
INR 1.63 10/10/25 02:09
APTT 35.7 Sec (23.4-35.0) H 10/06/25 12:01
Sodium 133 mmol/L (135-145) L 10/10/25 02:09
Potassium 4.3 mmol/L (3.5-5.1) D 10/10/25 02:09
BUN 12 mg/dl (7-17) 10/10/25 02:09
Creatinine 0.6 mg/dL (0.6-1.0) 10/10/25 02:09
Glucose 117 mg/dl (70-99) H 10/10/25 02:09
Vital Signs and I&O:
Vital Signs
Temp Pulse Resp BP Pulse Ox
98.2 F 72 16 143/71 99
10/10/25 08:38 10/10/25 09:00 10/10/25 08:38 10/10/25 08:38 10/10/25 09:17
Vital Signs
Temp Pulse Resp BP Pulse Ox
98.2 F 72 16 143/71 99
10/10/25 08:38 10/10/25 09:00 10/10/25 08:38 10/10/25 08:38 10/10/25 09:17
Intake & Output
12/0710/09/25 10/10/25 10/11/25
06:59 06:59 06:59 06:59
Intake Total 2344.9 / 2366.7 1103.5 / 1103.5 631.1 / 631.1
Output Total 920 / 1075 2250 / 2250 1280 / 1280 200 / 200
Balance 1424.9 / 1291.7 -1146.5 / -1146.5 -648.9 / -648.9 -190 / -190
Physical Exam
Physical Exam
GEN: NAD, sitting out of bed to chair. Room air
HEENT: mmm
LUNGS: Bronchovesicular breath sounds decreased but clear.
CV: Irregularly irregular. Positive S1-S2. No murmur or rubs. Pacer wires present
ABD: soft, BS+, NT/ND
--- NOTE | 2025-10-10 11:22 | PTCARENOTE ---
cordis removed without incident.
[2025-10-10] MEDS: ROXICODONE 2.5 MG PO (14:58)
[2025-10-10] MEDS: TESSALON PERLES 100 MG PO (15:01)
--- NOTE | 2025-10-10 16:05 | PTCARENOTE ---
VS obtained, assessment stable. Patient assisted oob to bathroom, voided.
[2025-10-10] MEDS: SAFETUSSIN DM (SUGAR/ALCOHOL FREE) 200 MG PO ×2 (18:26→23:55)
--- NOTE | 2025-10-10 20:00 | PTCARENOTE ---
assumed care of pt from previous RN. pt A&Ox4, resting in bed at time of assessment. A flutter on tele-monitor. temp epicardial v-wires insulated. POX 99% on RA. abd s/n, +BS. pt confirms passing gas. pt voiding clear, yellow colored urine. all
surgical sites stable, CDI. PIV intact. see worklist for complete nursing assessment, interventions, VS, and I&Os.
[2025-10-11] VITALS (12 sets, daily range): BP systolic 94–141; BP diastolic 53–77; PULSE 64; O2SAT 98–99; BMI 20.3
--- NOTE | 2025-10-11 | PTCARENOTE ---
assessment remains unchanged. VSS.
--- NOTE | 2025-10-11 03:54 | W.PN.CT ---
Today's Communication / Plan
-
Plan:
-No major issues overnight. Hemodynamically and neurologically intact
-Weaned off of Dobutamine gtt on 10/09/25
-Chest tube and wick d/c'd on 10/09/25
-Remains in rate controlled a-fib
-Tolerating resumption of low dose BB (Toprol XL 12.5 mg BID). Amiodarone remains on hold given postop bradycardia in the 40's
-Will cut temporary PW today
-Will resume Xarelto today
-INR stable @ 1.44
-H/H stable @ 9.5/28.9
-Plts stable @ 109K, preop 120K
-Will resume ASA
-Hyponatremia has resolved, 137. Responded well to 20 mg IV lasix, wt down 2kg from yesterday, will transition to PO Lasix. Will replete K of 3.2
-Cont. current meds (Toprol XL, Levothyroxine)
-Encourage use of IS
-F/u 2-view cxr
-OOB into chair/Ambulate
-Repeat echo on 10/09 showed and intact MV repair with PG/MG of 8/2 mmHg respectively, trace MR; mod-severe TR, LVEF 54%
-Home today
Assessment / Plan
-
Assessment:
-S/P Right mini thoracotomy with right femoral artery and vein cannulation under CEDRIC guidance/ Radical mitral valve repair (free edge remodeling of P1 and P2 as well as P2 and P3, imbrication of P2 and P3, placement of 3 [place]-Norberto sutures with 2 to
the posterior leaflet and 1 to the anterior leaflet, 36 mm band annuloplasty)/ Cryo left atrial maze, left atrial appendage exclusion, by Dr. gonsales, 10/06/25, pod#5
-Myxomatous mitral valve degeneration with severe insufficiency, type II pathology as well as significant annular dilatation [atrial functional]
-Chronic atrial fibrillation with severely dilated left atrium
-Mild-moderate TR
-Massively dilated left atrium
-Severely dilated right atrium
-Dilated coronary sinus (1.3 cm)
-LVEF 55% per intraop CEDRIC
-Hypothyroidism
-Restless leg syndrome
-Chronic cough
-Thrombocytopenia
-Acute postop blood loss/Anemia (stable, received cell saver intraop)
-Acute postop thrombocytopenia on chronic thrombocytopenia (stable, no active bleed)
-Acute postop atelectasis
-Acute postop hypovolemia with subsequent hypervolemia
-Acute postop bradycardia
-Acute postop hypernatremia, 148
-Acute postop hyponatremia
-Acute postop hypokalemia/hyperkalemia
Discussed patient care with: Cardiology, Nursing, Respiratory Therapy, Pharmacy and Care Team
Subjective
Procedure
S/P Right mini thoracotomy with right femoral artery and vein cannulation under CEDRIC guidance/ Radical mitral valve repair (free edge remodeling of P1 and P2 as well as P2 and P3, imbrication of P2 and P3, placement of 3 [place]-Norberto sutures with 2 to
the posterior leaflet and 1 to the anterior leaflet, 36 mm band annuloplasty)/ Cryo left atrial maze, left atrial appendage exclusion, by Dr. gonsales, 10/06/25
-
Date of Service: October 11, 2025
Pt c/o mild incisional pain, otherwise feels well. Ambulating halls without difficulty. Had BM. Cough has subsided
Objective Data
-
PT 19.5 Sec (11.4-14.6) H 10/10/25 02:09
INR 1.63 10/10/25 02:09
APTT 35.7 Sec (23.4-35.0) H 10/06/25 12:01
Vital Signs
Vital Signs
Temp Pulse Resp BP Pulse Ox
97.6 F 57 16 94/53 96
10/10/25 23:59 10/11/25 00:20 10/10/25 23:59 10/11/25 00:20 10/10/25 23:59
CT Intake/Output/Weight
10/10/25 10/10/25 10/11/25
06:59 18:59 06:59
Intake Total 110 / 631.1 590 / 590
Output Total 1000 / 1280 2100 / 2325 225 / 2325
Balance -890 / -648.9 -1510 / -1735 -225 / -1735
SaO2: 96 (RA)
Physical Exam
-
General: Awake, Oriented and AOx3
Cardiovascular: Irregular rate & rhythm (a-fib), No Murmurs, No Rub and No Gallop
Respiratory: Decreased Breath Sounds (at bases, otherwise clear)
Sternum: Stable
Incision: Clean, Dry, Intact and Dressing Intact
Extremities: Other (+trace edema)
Data Reviewed
-
Lab Results: Results Reviewed
Medications: Active Meds Reviewed
Chest X-Ray: Report Reviewed and Image Reviewed
ECG: Report Reviewed and Image Reviewed
[2025-10-11 04:27] LABS: Hematocrit 28.9 % (37.0-47.0); Hemoglobin 9.5 g/dL (12.0-16.0); Mean Corp Hgb Conc. 32.9 g/dL (33.0-37.0); Mean Corpuscular Volume 84.0 fL (81.0-99.0); Platelet Count 109 10^3/uL (130-400); Red Cell Dist. Width 14.4 % (11.5-14.5)
[2025-10-11 04:36] LABS: INR 1.44; PT 17.7 Sec (11.4-14.6)
[2025-10-11 04:46] LABS: Blood Urea Nitrogen 12 mg/dl (7-17); Calcium 8.3 mg/dl (8.4-10.2); Carbon Dioxide 29 mmol/L (22-30); Chloride 103 mmol/L (98-107); Estimated Creatinine Clearance 76 ml/min; Glucose 135 mg/dl (70-99); Magnesium 2.2 mg/dl (1.6-2.3); Potassium 3.2 mmol/L (3.5-5.1); Sodium 137 mmol/L (135-145); eGFR > 60.00
[2025-10-11] MEDS: CALCIUM GLUCONATE 100 IV (05:28)
[2025-10-11] MEDS: SAFETUSSIN DM (SUGAR/ALCOHOL FREE) 200 MG PO ×2 (05:28→11:48)
[2025-10-11] MEDS: TYLENOL 975 MG PO (05:28)
[2025-10-11] MEDS: KCL ELIXIR 40 MEQ PO (05:28)
[2025-10-11] MEDS: SYNTHROID 50 MCG PO (05:28)
--- NOTE | 2025-10-11 08:00 | PTCARENOTE ---
pt received from previous RN, oriented, OOB in chair. Aflutter on the monitor, HR 50-60s. V wire insulated. SBP 120s. palpable pulses. trace generalized edema. pt on RA, 96% POX. lungs clear, diminished in bases. IS encouraged. pt abdomen s/n,
denies n/v. +BS, +BM. voids. ambulates w/ stand by. surgical incisions GAGANDEEP, approximated. chest tube site c/d/i. R groin GAGANDEEP. PIV. see worklist for VS, I&O, and assessment.
[2025-10-11] MEDS: NSS IV (08:05)
[2025-10-11] MEDS: SENOKOT PO (08:05)
[2025-10-11] MEDS: LASIX IV (08:19)
[2025-10-11] MEDS: NEURONTIN 100 MG PO (08:56)
[2025-10-11] MEDS: TOPROL XL 12.5 MG PO (08:56)
[2025-10-11] MEDS: LASIX 20 MG PO (08:56)
[2025-10-11] MEDS: PROTONIX 40 MG PO (08:56)
[2025-10-11] MEDS: LOW STRENGTH ASPIRIN 81 MG PO (08:56)
[2025-10-11] MEDS: KCL 40 MEQ PO (08:56)
[2025-10-11] MEDS: MAGNESIUM OXIDE 400 MG PO (08:57)
--- NOTE | 2025-10-11 10:20 | W.DCSUMMARY ---
Discharge Summary
Discharge Data
Date of Admission: 10/06/25
Date of Discharge: 10/11/25
Total time spent discharging patient (in min): 45
-
Pending Results: No
Hospital Course
Primary care physician:
Dr. Singer
Outpatient booth manager:
Dr. C[place]ton
Inpatient consultants:
DCA, reactor kettle operator
Procedures:
1. Radical mitral valve repair (free edge remodeling of P1 and P2 as well as P2 and P3, imbrication of P2 and P3, placement of 3 [place]-Norberto sutures with 2 to the posterior leaflet and 1 to the anterior leaflet, 36 mm band annuloplasty)
Primary Diagnosis:
1. Myxomatous mitral valve degeneration with severe mitral valve insufficiency, permanent atrial fibrillation
Secondary Diagnoses:
-Chronic atrial fibrillation with severely dilated left atrium
-Mild-moderate TR
-Massively dilated left atrium
-Severely dilated right atrium
-Dilated coronary sinus (1.3 cm)
-Hypothyroidism
-Restless leg syndrome
-Chronic cough
-Thrombocytopenia
-Acute postop thrombocytopenia on chronic thrombocytopenia (stable, no active bleed)
-Acute postop atelectasis
-Acute postop hypovolemia with subsequent hypervolemia
-Acute postop hyponatremia
-Acute postop hypokalemia/hyperkalemia
HPI: 65-year-old female with degenerative mitral valve disease and severe mitral valve sufficiency. She has been developing more symptoms lately and was referred for consideration of mitral valve repair. She stated that she has longstanding
atrial fibrillation for as long as she remembers. Given her dilated left atrium, the odds of her remaining in sinus were lower however she was offered mitral valve repair as well as left atrial maze and left atrial appendage exclusion
Hospital course
Patient was electively admitted on 10/06 for a heart port mitral valve repair with Dr. Mccarty. Postoperatively she returned to the CVICU for the remainder of her recovery on Levophed dobutamine insulin and Precedex infusions. Precedex was weaned off
and patient was extubated by 1610. Due to bradycardia patient was atrial paced at 70 bpm. On 10/07 postoperative day 1, patient was thrombocytopenic with platelets at 58 and aspirin was placed on hold. SVR was 2000 so patient was given additional
IV fluids along with 25% albumins. Patient's dobutamine was weaned to 2.5. On 10/08 postoperative day 2 patient's INR was 1.8 and platelets continue to downtrend down to 41. DDAVP was given. Patient was also given 40 mg of IV Lasix with adequate
response. Dobutamine was weaned to 1.5. On 10/09 postoperative day 3, platelets continue to downtrend down to 33 however repeat later in the afternoon was 58. Amiodarone was discontinued. Dobutamine was weaned off. Right pleural chest tube and
[place]imb[place] catheter was removed. Patient tolerated ambulation in the hallways. On 10/10 postoperative day 4, patient was diuresed with 20 mg of IV Lasix and she diuresed about 3 L. Right IJ Cordis was removed. She was started on low-dose Toprol which
she tolerated throughout the day. Platelets started to improve on this day and she was started on aspirin 81 mg. On 10/11 postoperative day 5, patient's platelets continue to improve and she was resumed on her home dose of Xarelto. Due to her
marked response to IV Lasix she was transition to her home regimen of Lasix. Two-view chest x-ray was stable and she was deemed ready for discharge home. Epicardial wires were cut at the skin prior to discharge without issue.
Home medication changes:
see below
Discharge Plan
-
Patient Disposition: Home (Routine Discharge)
Discharge Diagnosis/Procedures: mitral valve repair, left atrial appendage clip (10/06/25)
Condition: Good
Diet: 2 Gram Sodium and Restrict fluids to 64 oz
Activity: No strenuous activity
Driving Restrictions: Not until seen by your Dr
Bathing Restrictions: OK to Shower
Blood Work: BMP in one week
Other Services: Cardiac Rehab
Specialty Instructions: Weigh Daily- Call MD for wt gain/loss 3 lbs overnight/5 lbs in 1 week
Activity Restrictions/Additional Instructions:
ACTIVITY:
-No strenuous activity: no heavy lifting, pushing, pulling anything over 15 pounds for 2 weeks
-continue to use stairs as tolerated
DRIVING RESTRICTIONS:
-No driving for 2 weeks or until approved by your surgeon
WOUND CARE:
-Shower daily. Use soap & water.
-No lotions, creams or powders on incision area.
DIET:
-continue a low fat/low cholesterol diet.
-IF you are diabetic, continue carb controlled diet.
CARDIAC REHAB:
-Please make appointment to start in 5-6 weeks with your local hospital program. (See Cardiac Rehabilitation Discharge Booklet).
SPECIALTY INSTRUCTIONS:
-Weigh yourself daily. Call your physician for any weight gain/loss of 3 lbs overnight or 5 lbs in one week.
-REPORT any clicking noise or uneven appearance of your sternum to your surgeon immediately.
-If you smoke, you are instructed to quit. The [place] smoking hotline phone number is [phone]
Referrals:
CT Transitional Care Nurse [Outside]
Referral Note: The Cardiothoracic Transitional Care Nurse will call you to set up a visit in 1-2 days.
[facility] [Outside] - 11/03/25
Referral Note: Cardiac Rehab Orientation appointment and� First Exercise appointment is on Thursday11/03/25 at 1pm.
The Cardiac Rehab gym is located on the first floor of the [facility].
Doreen Mobley PA-C [Specified Professional Personl, Cardiology] - 11/21/25 9:40 am
Kerline Singer DO [Family Provider, Family Practice]
Benjamín Mccarty MD [Active, Cardiac Surgery] - 11/06/25 2:15 pm
Additional Discharge Medication Instructions: Please continue lasix for one week
Please note that your lopressor dose as changed and a new prescription was sent
Prescriptions:
New
acetaminophen 325 mg Tablet
650 mg PO Q4HPRN PRN (Reason: mild pain,headache,temp >101F ) Qty: 0 0RF
potassium chloride [Klor-Con M20] 20 mEq Tablet,Er Particles/Crystals
20 meq PO DAILY Qty: 10 0RF
pantoprazole 40 mg Tablet,Delayed Release (Dr/Ec)
40 mg PO DAILY Qty: 90 3RF
aspirin 81 mg Tablet,Chewable
81 mg PO DAILY Qty: 0 0RF
gabapentin 100 mg Capsule
100 mg PO TID Qty: 30 0RF
oxycodone 5 mg Tablet
2.5 mg PO Q4HPRN PRN (Reason: severe pain) Qty: 10 0RF
Continued
levothyroxine 50 mcg Tablet
50 mcg PO DAILY
cholecalciferol (vitamin D3) [Vitamin D3] 50 mcg (2,000 unit) Capsule
50 mcg PO DAILY
Xarelto 20 mg Tablet
20 mg PO QPM
multivitamin Tablet
1 tab PO DAILY
furosemide [Lasix] 20 mg tablet
20 mg PO DAILY
Changed
metoprolol succinate 50 mg Tablet Extended Release 24 Hr
25 mg PO DAILY Qty: 60 1RF
Discontinued
lisinopril 2.5 mg tablet
2.5 mg PO DAILY
Discharge Orders:
Discharge Patient (As Directed); Ordered 10/11/25
Ordered By: Danya Richards
Care Plan Goals
Care Plan Goals:
Problem: Readiness for enhanced knowledge related to diagnosis and treatment plan
Goal: Understand your diagnosis and treatment plan needs, including medications if applicable.
Instructions: Know your diagnosis, underlying causes and treatment plan options, including medications if applicable. Consult with your health care team to learn about your diagnosis and treatment plan, including medications if applicable.
Discharge Date and Time
Print Language: CZECH
--- NOTE | 2025-10-11 10:29 | W.PN.CARDCBS ---
Today's Communication / Plan
-
Stable cardiology status for discharge
Impression / Plan
-
Primary Bilingual Customer Service Specialist: Dr. Lozada
Assessment:
Severe mitral valve insufficiency with significant annular dilatation status post radical MVR via right minithoracotomy, cryo LA MAZE, DIEGO clip 10/06/2025
Postop thrombocytopenia
Chronic atrial fibrillation
Chronic anticoagulation with Xarelto
Severely dilated LA
Hypertension
Hypothyroidism
Restless leg syndrome
CEDRIC 03/21/2025: EF 60%, severe MR due to prolapse of posterior leaflet, predominantly P2 segment, mild to moderate TR, PAP 28 mmHg
Plan:
Stable cardiology status for discharge
Remains in rate controlled A-fib
Xarelto has been resumed
Cardiac follow-up arranged
Discussed with CT surgery
Progress Note - Bilingual Customer Service Specialist
Subjective
Date of Service: October 11, 2025
No chest pain or shortness of breath
Objective
Labs:
10/11/25 04:07
10/11/25 04:07
Labs
Hgb 9.5 g/dL (12.0-16.0) L 10/11/25 04:07
Hct 28.9 % (37.0-47.0) L 10/11/25 04:07
Plt Count 109 10^3/uL (130-400) L D 10/11/25 04:07
PT 17.7 Sec (11.4-14.6) H 10/11/25 04:07
INR 1.44 10/11/25 04:07
APTT 35.7 Sec (23.4-35.0) H 10/06/25 12:01
Sodium 137 mmol/L (135-145) 10/11/25 04:07
Potassium 3.2 mmol/L (3.5-5.1) L D 10/11/25 04:07
BUN 12 mg/dl (7-17) 12/10/25 04:07
Creatinine 0.6 mg/dL (0.6-1.0) 10/11/25 04:07
Glucose 135 mg/dl (70-99) H 10/11/25 04:07
Vital Signs and I&O:
Vital Signs
Temp Pulse Resp BP Pulse Ox
98.2 F 65 18 121/65 96
10/11/25 07:25 10/11/25 08:56 10/11/25 07:25 10/11/25 08:56 10/11/25 09:33
Vital Signs
Temp Pulse Resp BP Pulse Ox
98.2 F 65 18 121/65 96
10/11/25 07:25 10/11/25 08:56 10/11/25 07:25 10/11/25 08:56 10/11/25 09:33
Intake & Output
10/09/25 10/10/25 10/11/25 10/12/25
06:59 06:59 06:59 06:59
Intake Total 1103.5 / 1103.5 631.1 / 631.1 590 / 590
Output Total 2250 / 2250 1280 / 1280 2325 / 2325
Balance -1146.5 / -1146.5 -648.9 / -648.9 -1735 / -1735
Physical Exam
Physical Exam
General: Well developed, well nourished in NAD.
Neck: Supple, no JVD, HJR, carotids +2 B/L, no bruits bilaterally.
Heart: Non displaced PMI, RRR, no murmurs, No S3, S4, no rubs.
Lungs: Scattered rhonchi
Sternal dressings noted
Extremities: No clubbing, cyanosis or edema bilaterally.
Neuro: Grossly nonfocal, awake, alert and oriented x3.
--- NOTE | 2025-10-11 10:32 | PTCARENOTE ---
2VCXR completed. pt ambulated in hallway w/ CR, stairs completed. brother updated over phone. IS encouraged.
--- NOTE | 2025-10-11 12:05 | PTCARENOTE ---
pt VSS, no changes in assessment. voids in bathroom. pt placed back to bed, V wire cut/pulled by OIL LABORATORY ANALYST. pt in bed x1hr, VS q15min per protocol.
--- NOTE | 2025-10-11 13:45 | PTCARENOTE ---
brother at bedside, discharge instructions reviewed. home meds reviewed. surgical dressings removed. IV and tele dc'd. questions answered. pt showered, dressed self. pt taken out by wheelchair via RN, pt left w/ all belongings.
== END 2025-10-11 13:45 | disposition home or self-care (01) | DRG 317 ==
LOC: CVICU 04:59
PROVIDERS: Anesthesiology; Nurse Practitioner; ADMITTING PHYSICIAN Thoracic Surgery (Cardiothoracic Vascular Surgery); CONSULT PHYSICIAN Internal Medicine; FAMILY PHYSICIAN Family Medicine
PROC: 02L70CK Occlusion of Left Atrial Appendage with Extraluminal Device, Open Approach (ICD-10-PCS; 2025-10-06)
PROC: 02580ZZ Destruction of Conduction Mechanism, Open Approach (ICD-10-PCS; 2025-10-06)
PROC: B24BZZ4 Ultrasonography of Heart with Aorta, Transesophageal (ICD-10-PCS; 2025-10-06)
PROC: 02UG0JZ Supplement Mitral Valve with Synthetic Substitute, Open Approach (ICD-10-PCS; 2025-10-06)
DX: I34.0 Nonrheumatic mitral (valve) insufficiency (principal); I48.21 Permanent atrial fibrillation; D62 Acute posthemorrhagic anemia; J98.11 Atelectasis; E87.0 Hyperosmolality and hypernatremia; E87.1 Hypo-osmolality and hyponatremia; E86.1 Hypovolemia; E87.70 Fluid overload, unspecified; R00.1 Bradycardia, unspecified; E87.6 Hypokalemia; E87.5 Hyperkalemia; D69.59 Other secondary thrombocytopenia; I27.20 Pulmonary hypertension, unspecified; G25.81 Restless legs syndrome; E03.9 Hypothyroidism, unspecified; R53.82 Chronic fatigue, unspecified; F79 Unspecified intellectual disabilities; Z88.1 Allergy status to other antibiotic agents; Z91.013 Allergy to seafood; Z79.890 Hormone replacement therapy; Z79.01 Long term (current) use of anticoagulants; Z79.899 Other long term (current) drug therapy
CPT/HCPCS: 33259; 36415; 71045; 71046; 80048; 80053; 81003; 81015; 82248; 82330; 82565; 82805; 82810; 82947; 82962; 83036; 83605; 83735; 84132; 84302; 84520; 85014; 85018; 85025; 85027; 85049; 85610; 85730; 86850; 86900; 86901; 86920; 87070; 87086; 93005; 93306; 93312; 93320; 93325; 94002; 94640; J1250; J2597; J2916; P9045; P9047